=== PATIENT | male | born 1945 | race Hispanic/Latino ===

== ENCOUNTER 2016-06-03 08:37 | Emergency (ER) | payer MEDICARE ==
[2016-06-03 09:11] VITALS: BMI 29.7
[2016-06-03 09:14] VITALS: BP 110/66; PULSE 70; RESP 18; TEMP 97.7; O2SAT 98
--- NOTE | 2016-06-03 09:14 | C.PDOC ---
History Of Present Illness 70-year-old male, PMHx includes Triple Bypass, LA (on Aspirin 81mg QD), COPD and Hypertension, presents to the emergency department with complaints of inability to urinate. Patient states he had a procedure done at Dr Macias office two days ago, after which he had a few episodes of hematuria which resolved. States he has been unable to urinate since 01:30 this morning, resulting in him coming to the ED for evaluation. Denies any other associated symptoms. Urologist Sydnee Sanchez MD. Time Seen by Provider: 06/03/16 09:03 Chief Complaint (Nursing): Male Genitourinary Past Medical History Reviewed: Historical Data, Nursing Documentation, Vital Signs Vital Signs: Last Vital Signs Temp 97.7 F 06/03/16 09:11 Pulse 70 06/03/16 09:11 Resp 18 06/03/16 09:11 BP 110/66 06/03/16 09:11 Pulse Ox 98 06/03/16 09:11 - Medical History PMH: Anxiety, Asthma, Bronchitis, CAD, CHF, Colonic Polyps, COPD, Depression, Emphysema, HTN, Hyperlipidemia, Hypothyroidism Denies: Chronic Kidney Disease Surgical History: Appendectomy, CABG (Triple bypass Nov 1996), Coronary Stent, Endoscopy - [facility] Procedures CORONAR ARTERIOGR-2 CATH (05/23/13) ESOPHAGOGASTRODUODENOSCOPY [EGD] W/CLOSED BIOPSY (03/21/14) LEFT HEART CARDIAC CATH (05/23/13) LT HEART ANGIOCARDIOGRAM (05/23/13) MEASURE OF CARDIAC SAMPL & PRESSURE, L HEART, PERC APPROACH (11/28/15) PLAIN RADIOGRAPHY OF LEFT HEART USING OTHER CONTRAST (11/28/15) PLAIN RADIOGRAPHY OF MULT COR A GRAFT USING OTH CONTRAST (11/28/15) PLAIN RADIOGRAPHY OF MULT COR ART USING OTH CONTRAST (11/28/15) Family History: States: Unknown Family Hx - Social History Hx Tobacco Use: No Hx Alcohol Use: No (25 yrs ago) Hx Substance Use: No - Immunization History Hx Tetanus Toxoid Vaccination: No Hx Influenza Vaccination: Yes Hx Pneumococcal Vaccination: Yes Review Of Systems Except As Marked, All Systems Reviewed And Found Negative. Constitutional: Negative for: Fever, Chills Respiratory: Negative for: Cough, Shortness of Breath Gastrointestinal: Positive for: Abdominal Pain. Negative for: Nausea, Vomiting Genitourinary: Positive for: Hematuria (resolved.), Other (inability to urinate) . Negative for: Dysuria, Rash Skin: Negative for: Rash Neurological: Negative for: Weakness, Numbness Physical Exam - Physical Exam Appears: Non-toxic, No Acute Distress Skin: Warm, Dry, No Rash Head: Atraumatic, Normacephalic Eye(s): bilateral: Normal Inspection, PERRL, EOMI Nose: Normal Oral Mucosa: Moist Lips: Normal Appearing Neck: Normal ROM Cardiovascular: Rhythm Regular Respiratory: Normal Breath Sounds, No Accessory Muscle Use Gastrointestinal/Abdominal: Soft, Tenderness (MILD, SUPRAPBIC), No Guarding, No Rebound Male Genital: Normal Inspection (no bleeding.) Extremity: Normal ROM Neurological/Psych: Oriented x3, Normal Speech Medical Decision Making Medical Decision Making: the pt had 250ml output in the ED and afterwards felt much better. PVRV about 500ml on US. Dr Sanchez came and evaluated the pt in the ED. he rec no voss at this time. pt to follow up with him by phone this afternoon. Disposition - Disposition Referrals: Sydnee Sanchez MD [Staff Provider] - Disposition: HOME/ ROUTINE Disposition Time: 09:46 Condition: IMPROVED Additional Instructions: Please follow up with Dr Sanchez. Return to the ER fot any worsening symptoms or for any other concerns. Instructions: Urinary Retention in Men (ED) Forms: General Discharge Instructions - Clinical Impression Clinical Impression: Urinary retention - Scribe Statement The provider has reviewed the documentation as recorded by the Jennie Robles All medical record entries made by the Barbiibonur were at my direction and personally dictated by me. I have reviewed the chart and agree that the record accurately reflects my personal performance of the history, physical exam, medical decision making, and the department course for this patient. I have also personally directed, reviewed, and agree with the discharge instructions and disposition.
[2016-06-03 10:14] LABS: RBC URINE 65 /hpf (0-3); URINE BILIRUBIN NEGATIVE (NEGATIVE); URINE BLOOD 2+ (NEGATIVE); URINE COLOR Straw (YELLOW); URINE GLUCOSE (UA) NORMAL (Normal); URINE HYALINE CAST 0-2 /lpf (0-2); URINE KETONE NEGATIVE (NEGATIVE); URINE LEUKOCYTE ESTERASE NEG Leu/uL (Negative); URINE PROTEIN NEGATIVE (NEGATIVE); URINE UROBILINOGEN NORMAL mg/dL (0.2-1.0); WBC URINE 2 /hpf (0-5)
--- NOTE | 2016-06-10 08:26 | CON ---
DATE: 06/03/2016 REASON FOR CONSULTATION: Urinary retention. The patient is in otherwise fair health. The patient presents with difficulty voiding. He reports t hat he has been unable to urinate. He had difficulty voiding over the past night. The patient repor ts that he has been unable to urinate this morning. He, therefore, presented to the Emergency Room. There has been no fever, no hematuria. The patient has had mild dysuria. The patient has history of BPH. He underwent cystoscopy earlier this week. There has been no recent fever or rigors. No nausea or vomiting. No flank pain. The patient presented to the Emergency Room. In the Emergency Room, he voided 250 mL. He reports th at he voided with a better flow. For further details, see attached reports. PHYSICAL EXAMINATION: GENERAL: The patient is a well-developed, well-nourished elderly male. The patient is awake and charles rt. ABDOMEN: Soft, nontender, nondistended. GENITALIA: Without inflammation. A bladder scan was performed. The postvoid residual was approximately 400 mL. IMPRESSION: Incomplete bladder emptying. Benign prostatic hypertrophy. History of greater difficul ty voiding earlier today, now improved. I reviewed the findings with the patient. I was prepared to insert a Goins catheter. However, in vi ew of his improvement, we decided to monitor the patient without a Goins catheter. RECOMMENDATIONS AND PLAN: Scheduled voiding. I will increase patient's tamsulosin to 0.4 mg twice a day. Further therapy to follow according to patient's clinical course. The patient was informed regarding the plan and the possible need for catheterization. Thank you for recommending the patient for urology consultation. Sydnee Sanchez MD cc: [id number] TT: 06/10/2016 08:25:34 Confirmation # [id number] Dictation # [id number] [email or web address]
== END 2016-06-03 10:15 | disposition home or self-care (01) ==
LOC: C.ER 08:37
DX: N40.1 Benign prostatic hyperplasia with lower urinary tract symptoms (principal); R33.8 Other retention of urine

== ENCOUNTER 2016-07-25 05:50 | Day surgery (SDC) | payer MEDICARE ==
[2016-07-25 07:02] VITALS: BMI 26.6
[2016-07-25] MEDS ORDERED: Lactated Ringer's 500 ML IV SCH (07:45)
[2016-07-25] MEDS ORDERED: Propofol 10 mg/ml Inj (20 ML) ONE (08:08)
--- NOTE | 2016-07-25 08:10 | CP.SDSHP ---
Same Day Surgery H & P - History Proposed Procedure: High risk screening cololonscopy Pre-Op Diagnosis: Personal history of colon polyps - Previous Medical/Surgical History Cardiac: ASHD/CAD, Previous VA, Hx of CHF Pulmonary: Asthma Previous Surgical History: Appendectomy - Allergies Allergies: Allergies No Known Allergies Allergy (Verified 08/08/14 09:50) - Current Medications Current Medications: See reconciliation sheet - Physical Exam General Appearance: WD WN male in NAD Vital Signs: Vital Signs 07/25/16 07:02 Temperature 97.3 F L Pulse Rate 80 Respiratory 20 Rate Blood Pressure 99/43 L O2 Sat by Pulse 97 Oximetry Mental Status: Alert & Oriented x3 Neuro: WNL Heart: WNL Lungs: WNL GI: WNL - {Optional Preform as Required} Abdomen: WNL - Impression Impression: Personal history of colon polyps Pt. Evaluated Today:Candidate for Anesthesia & Procedure: Yes - Date & Time Date: 07/25/16 Time: 08:10 Short Stay Discharge - Short Stay Discharge Admitting Diagnosis/Reason for Visit: P/H COLON POLYPS Disposition: HOME/ ROUTINE
[2016-07-25] MEDS ORDERED: Lidocaine Hydrochloride 5 ML INJ ONE (08:48)
[2016-07-25 12:00] VITALS: O2SAT 100
[2016-07-25 12:01] VITALS: BP 92/52; PULSE 75; RESP 16; TEMP 98.4
== END 2016-07-25 11:00 | disposition home or self-care (01) ==
LOC: C.ENDO 05:50
PROVIDERS: ATTEND Internal Medicine Gastroenterology
DX: Z12.11 Encounter for screening for malignant neoplasm of colon (principal); Z86.010 Personal history of colon polyps; D12.3 Benign neoplasm of transverse colon; D12.2 Benign neoplasm of ascending colon
CPT/HCPCS: 45385; 88305; J2704; J7120

== ENCOUNTER 2017-08-22 12:05 | Inpatient (IN) | payer MEDICARE ==
[2017-08-22 12:05] VITALS: BMI 26.6
--- NOTE | 2017-08-22 12:55 | C.PDOC ---
History Of Present Illness 72yo male with history of COPD, hypertension, CABG, presents to ED from his podiatrists' office after he developed some chest pressure. Patient states he took 7 81mg Aspirin a someone told him he could for pain relief. He reports feeling shortness of breath which prompted him to call 911. En route to ER, patient was given Nitro by EMS and states his chest pain and shortness of breath has resolved. He denies any fever, chills, weakness, diaphoresis, and offers no other medical complaints. Time Seen by Provider: 08/22/17 12:28 Chief Complaint (Nursing): Chest Pain History Per: Patient History/Exam Limitations: no limitations Onset/Duration Of Symptoms: Hrs Current Symptoms Are (Timing): Still Present Associated Symptoms: denies: Nausea, Dyspnea, Diaphoresis, Syncope Additional History Per: Patient Past Medical History Reviewed: Historical Data, Nursing Documentation, Vital Signs Vital Signs: Last Vital Signs Temp 98.2 F 08/22/17 12:24 Pulse 74 08/22/17 12:24 Resp 10 L 08/22/17 12:24 BP 89/51 L 08/22/17 12:24 Pulse Ox 96 08/22/17 13:17 - Medical History PMH: Anxiety, Asthma, Bronchitis, CAD, CHF, Colonic Polyps, COPD, Depression, Emphysema, HTN, Hyperlipidemia, Hypothyroidism Denies: Chronic Kidney Disease Surgical History: Appendectomy, CABG (Triple bypass Nov 1996), Coronary Stent, Endoscopy - [facility] Procedures CORONAR ARTERIOGR-2 CATH (05/23/13) ESOPHAGOGASTRODUODENOSCOPY [EGD] W/CLOSED BIOPSY (03/21/14) LEFT HEART CARDIAC CATH (05/23/13) LT HEART ANGIOCARDIOGRAM (05/23/13) MEASURE OF CARDIAC SAMPL & PRESSURE, L HEART, PERC APPROACH (11/28/15) PLAIN RADIOGRAPHY OF LEFT HEART USING OTHER CONTRAST (11/28/15) PLAIN RADIOGRAPHY OF MULT COR A GRAFT USING OTH CONTRAST (11/28/15) PLAIN RADIOGRAPHY OF MULT COR ART USING OTH CONTRAST (11/28/15) Family History: States: Unknown Family Hx - Social History Hx Tobacco Use: No Hx Alcohol Use: No (25 yrs ago) Hx Substance Use: No - Immunization History Hx Tetanus Toxoid Vaccination: No Hx Influenza Vaccination: Yes Hx Pneumococcal Vaccination: Yes Review Of Systems Except As Marked, All Systems Reviewed And Found Negative. Constitutional: Negative for: Fever, Chills, Sweats Cardiovascular: Positive for: Chest Pain (now resolved) Respiratory: Positive for: Shortness of Breath (now resolved) Neurological: Negative for: Weakness, Dizziness Physical Exam - Physical Exam Appears: Non-toxic, No Acute Distress Skin: Normal Color, Warm, Dry Head: Atraumatic, Normacephalic Eye(s): bilateral: Normal Inspection Oral Mucosa: Moist Neck: Normal ROM, Supple Chest: Symmetrical, No Tenderness Cardiovascular: Rhythm Regular, No Murmur Respiratory: Normal Breath Sounds, No Rales, No Rhonchi, No Wheezing Gastrointestinal/Abdominal: Soft, No Tenderness Back: Normal Inspection Extremity: Normal ROM, No Pedal Edema, No Deformity Neurological/Psych: Oriented x3 ED Course And Treatment - Laboratory Results Result Diagrams: 08/22/17 13:06 08/22/17 13:06 ECG: Interpreted By Me, Viewed By Me ECG Rhythm: Sinus Rhythm, L BBB Interpretation Of ECG: Normal axis, widened QRS V5 V6 Rate From EC O2 Sat by Pulse Oximetry: 96 (RA) Pulse Ox Interpretation: Normal Medical Decision Making Medical Decision Making: Impression: Chest pressure, shortness of breath Plan: -- EKG -- Labs -- CXR Progress: 1610 CXR FINDINGS: LUNGS: Bibasilar atelectasis/ scarring. No focal consolidation. PLEURA: No pneumothorax or pleural fluid seen. CARDIOVASCULAR: Prior sternotomy with sternal wires and surgical clips redemonstrated. Atherosclerotic aortic calcifications. Cardiomediastinal silhouette stably prominent. OSSEOUS STRUCTURES: Unchanged. VISUALIZED UPPER ABDOMEN: Normal. OTHER FINDINGS: None. IMPRESSION: Bibasilar atelectasis/scarring. No focal consolidation or pleural effusion. 1614 Labs reviewed and shows no acute findings. Patient to be admitted under Dr. Seu to telemetry due to chest pain. Disposition - Disposition - Scribe Statement The provider has reviewed the documentation as recorded by the Scribe (Josiane Morton) Provider Attestation: All medical record entries made by the Scribe were at my direction and personally dictated by me. I have reviewed the chart and agree that the record accurately reflects my personal performance of the history, physical exam, medical decision making, and the department course for this patient. I have also personally directed, reviewed, and agree with the discharge instructions and disposition.
[2017-08-22 13:12] LABS: BASO % 0.5 % (0.0-2.0); EOS # 0.1 K/uL (0.0-0.7); EOS % 1.8 % (0.0-4.0); HEMOGLOBIN 12.7 g/dL (12.0-18.0); LYMPH # 1.6 K/uL (1.0-4.3); LYMPH % 22.8 % (20.0-40.0); MEAN CORPUSCULAR HGB CONC 35.7 g/dL (33.0-37.0); MEAN PLATELET VOLUME 8.5 fL (7.2-11.7); MONO # 0.6 K/uL (0.0-0.8); NEUT # 4.7 K/uL (1.8-7.0); NEUT % 65.9 % (50.0-75.0); RBC 3.73 Mil/uL (4.40-5.90); RED CELL DISTRIBUTION WIDTH 13.3 % (11.5-14.5); WHITE BLOOD COUNT 7.1 K/uL (4.8-10.8)
[2017-08-22 13:17] LABS: MEAN CELL VOLUME 95.2 fL (80.0-94.0)
[2017-08-22 13:23] LABS: INR 1.1; PROTHROMBIN TIME 11.5 SECONDS (9.7-12.2)
[2017-08-22 13:25] LABS: ALB/GLOB RATIO 1.3 (1.0-2.1); ALBUMIN 3.4 g/dL (3.5-5.0); ALT/SGPT 22 U/L (21-72); AST/SGOT 19 U/L (17-59); BLOOD UREA NITROGEN 17 mg/dL (9-20); CALCIUM 8.1 mg/dl (8.6-10.4); GFR AFRICAN-AMERICAN > 60; GFR NON-AFRICAN AMERICAN > 60
--- NOTE | 2017-08-22 14:11 | RAD ---
PROCEDURE: CHEST RADIOGRAPH, 1 VIEW HISTORY: chest pain COMPARISON: Chest radiograph dated 11/27/2015. FINDINGS: LUNGS: Bibasilar atelectasis/ scarring. No focal consolidation. PLEURA: No pneumothorax or pleural fluid seen. CARDIOVASCULAR: Prior sternotomy with sternal wires and surgical clips redemonstrated. Atherosclerotic aortic calcifications. Cardiomediastinal silhouette stably prominent. OSSEOUS STRUCTURES: Unchanged. VISUALIZED UPPER ABDOMEN: Normal. OTHER FINDINGS: None. IMPRESSION: Bibasilar atelectasis/scarring. No focal consolidation or pleural effusion.
[2017-08-22] MEDS ORDERED: Home Med 1 UNIT (Acetaminophen/Oxycodone Hydr [Percocet 10/325 Mg Tab] 1 TAB) PO PRN (16:19)
--- NOTE | 2017-08-22 16:38 | CP.PCM.HP ---
History of Present Illness - History of Present Illness History of Present Illness: CC: Chest pain since 8am 08/22 (4pm seeing) PMD: Dr. Nuñez DNR/DNI This patient is a 72yo M w/ a PMhx of CABG (triple bypass) in 1995, CAD, HLD, HTN, Depression/anxiety, former smoker (120pack years, stopped in 1996) who is coming into the hospital for chest pain that started at 8am at his podiatry office. He states that it is retrosternal, is not going away, and took 8 baby aspirin before coming to the hospital. He denies weakness, shortness of breath, N/V/D, dysuria/freq/urg or lower extremity pain, but states he just feels "off" . PMhx: Triple Bypass CABG, CAD, HLD, HTN, Depression/Anxiety BPH Allergies: None Meds: Tylenol/codeine PRN for pain, Xanax PRN for anxiety, Aspirin 81mg daily, Lipitor 10mg daily, Lasix 20mg daily, Levothyroxine 75mcg daily, Lisinopril 2.5mg daily, toprol 12.5mg daily, Umeclidiunium bromide 1 puff BID Surgeries: CABG, right rotator cuff tear FamHx: Dad, brother both in 40's/50's from [place], mothers side lived into old age and of "natural" causes Social: walks with cane, independent in all ADL and IADL and lives alone with no administrator of home health, former smoker 120 pack years, stopped 1996 Present on Admission - Present on Admission Any Indicators Present on Admission: No History of DVT/PE: No History of Uncontrolled Diabetes: No Urinary Catheter: No Decubitus Ulcer Present: No Past Patient History - Infectious Disease Hx of Infectious Diseases: None - Past Medical History & Family History Past Medical History?: Yes - Past Social History Smoking Status: Former Smoker - CARDIAC Hx Congestive Heart Failure: Yes Hx Hypertension: Yes - PULMONARY Hx Asthma: Yes Hx Bronchitis: Yes Hx Chronic Obstructive Pulmonary Disease (COPD): Yes Hx Emphysema: Yes - NEUROLOGICAL Hx Neurological Disorder: No - HEENT Hx HEENT Problems: No Other/Comment: wears glasses to see and read - RENAL Hx Chronic Kidney Disease: No - ENDOCRINE/METABOLIC Hx Hypothyroidism: Yes - HEMATOLOGICAL/ONCOLOGICAL Hx Blood Disorders: No - INTEGUMENTARY Hx Dermatological Problems: No - MUSCULOSKELETAL/RHEUMATOLOGICAL Hx Musculoskeletal Disorders: Yes Hx Back Pain: Yes (herniated disc ,arthitis slipped disc,scoliosis) Hx Falls: No Hx Herniated Disk: Yes - GASTROINTESTINAL Hx Gastrointestinal Disorders: Yes Hx Gastroesophageal Reflux: Yes - GENITOURINARY/GYNECOLOGICAL Hx Genitourinary Disorders: Yes Hx Prostate Problems: Yes ("enlarged prostate") Other/Comment: prostate biopsy in June 2015 - PSYCHIATRIC Hx Anxiety: Yes Hx Depression: Yes Hx Substance Use: No - SURGICAL HISTORY Hx Appendectomy: Yes Hx Coronary Artery Bypass Graft: Yes (Triple bypass Nov 1996) Hx Coronary Stent: Yes - ANESTHESIA Hx Anesthesia: Yes Hx Anesthesia Reactions: No Hx Malignant Hyperthermia: No Meds Allergies/Adverse Reactions: Allergies Allergy/AdvReac Type Severity Reaction Status Date / Time No Known Allergies Allergy Verified 08/22/17 12:16 Physical Exam - Constitutional Appears: Well, Non-toxic - Head Exam Head Exam: ATRAUMATIC, NORMAL INSPECTION - Eye Exam Eye Exam: EOMI Pupil Exam: NORMAL ACCOMODATION - ENT Exam ENT Exam: Mucous Membranes Moist - Neck Exam Neck exam: Positive for: Full Rom. Negative for: Lymphadenopathy - Respiratory Exam Respiratory Exam: Clear to Auscultation Bilateral, Wheezes (mild wheezing), NORMAL BREATHING PATTERN. absent: Rales, Rhonchi - Cardiovascular Exam Cardiovascular Exam: REGULAR RHYTHM, +S1, +S2 - GI/Abdominal Exam GI & Abdominal Exam: Normal Bowel Sounds, Soft. absent: Organomegaly, Pulsatile Mass, Rebound, Rigid, Tenderness - Rectal Exam Rectal Exam: Deferred - Extremities Exam Extremities exam: Positive for: full ROM. Negative for: calf tenderness, pedal edema - Back Exam Back exam: NORMAL INSPECTION. absent: CVA tenderness (L), CVA tenderness (R) - Neurological Exam Neurological exam: Alert, CN II-XII Intact, Oriented x3 - Psychiatric Exam Psychiatric exam: Normal Affect - Skin Skin Exam: Normal Color, Warm Results - Vital Signs Recent Vital Signs: Last Vital Signs Temp 98.2 F 08/22/17 12:24 Pulse 74 08/22/17 12:24 Resp 10 L 08/22/17 12:24 BP 89/51 L 08/22/17 12:24 Pulse Ox 96 08/22/17 13:17 - Labs Result Diagrams: 08/22/17 13:06 08/22/17 13:06 Labs: Laboratory Results - last 24 hr 08/22/17 08/22/17 08/22/17 12:14 13:06 13:06 WBC 7.1 RBC 3.73 L Hgb 12.7 Hct 35.5 MCV 95.2 H D MCH 34.0 H MCHC 35.7 RDW 13.3 Plt Count 141 MPV 8.5 Neut % (Auto) 65.9 Lymph % (Auto) 22.8 [place] % (Auto) 9.0 Eos % (Auto) 1.8 Baso % (Auto) 0.5 Neut # (Auto) 4.7 Lymph # (Auto) 1.6 [place] # (Auto) 0.6 Eos # (Auto) 0.1 Baso # (Auto) 0.0 PT 11.5 INR 1.1 APTT 29 Sodium Potassium Chloride Carbon Dioxide Anion Gap BUN Creatinine Est GFR ( Amer) Est GFR (Non-Af Amer) POC Glucose (mg/dL) 147 H Random Glucose Calcium Total Bilirubin AST ALT Alkaline Phosphatase Troponin I Total Protein Albumin Globulin Albumin/Globulin Ratio 08/22/17 13:06 WBC RBC Hgb Hct MCV MCH MCHC RDW Plt Count MPV Neut % (Auto) Lymph % (Auto) [place] % (Auto) Eos % (Auto) Baso % (Auto) Neut # (Auto) Lymph # (Auto) [place] # (Auto) Eos # (Auto) Baso # (Auto) PT INR APTT Sodium 138 Potassium 3.6 Chloride 104 Carbon Dioxide 27 Anion Gap 11 BUN 17 Creatinine 0.8 Est GFR ( Amer) > 60 Est GFR (Non-Af Amer) > 60 POC Glucose (mg/dL) Random Glucose 120 H Calcium 8.1 L Total Bilirubin 0.5 AST 19 ALT 22 Alkaline Phosphatase 56 Troponin I < 0.0120 Total Protein 5.9 L Albumin 3.4 L Globulin 2.5 Albumin/Globulin Ratio 1.3 Assessment & Plan - Assessment and Plan (Free Text) Assessment: 72yo M admitted for chest pain Chest pain r/o ACS -received 325 aspirin PO already -telemetry -troponins q6h; initial negative with serial EKG -f/u BNP -EKG NSR with no ST segment elevations -f/u hemoglobin a1c, lipid panel, TSH/T4 -Cardiology; Dr. Robertson; thank you for your help HLD -c/w atorvastatin 10mg daily -f/u lipid panel HTN -c/w lisinopril 2.5mg -c/w toprol XL 12.5mg BID Hypothyroidism -f/u TSH/Free T4 -c/w levothyroxine 75mcg COPD -c/w home meds (we do not have on formulary) -PRN breathing treatments for wheezing/SOB BPH -home med changed to tamsulosin 0.4mg daily Proph GI prophylaxis not indicated SCDs Case discussed and seen with attending physician Decision To Admit - Pt Status Changed To: Hospital Disposition Of: Observation - . Bed Request Type: Telemetry Admitting Physician: George Moss
[2017-08-22] MEDS ORDERED: Albuterol-Ipratrop 3 mg / 0.5 (3 ml) UD INH PRN (16:42)
[2017-08-22] MEDS ORDERED: oxyCODONE 5 mg Immediate Release Tab PO PRN (16:45)
[2017-08-22] MEDS ORDERED: Nitroglycerin 2% Ointment Foilpak UD TOP STA (17:04)
[2017-08-22] MEDS ORDERED: Nitroglycerin 2% Ointment Foilpak UD TOP ONE (17:10)
--- NOTE | 2017-08-22 18:37 | CP.PCM.CON ---
History of Present Illness - History of Present Illness History of Present Illness: CC: Chest Pain This patient is a 72yo M w/ a PMhx of CABG (triple bypass) in 1995, CAD, HLD, HTN, Depression/anxiety, former smoker (120pack years, stopped in 1996) who is coming into the hospital for chest pain that started at 8am at his podiatry office. He states that it is retrosternal, is not going away, and took 8 baby aspirin before coming to the hospital. He denies weakness, shortness of breath, N/V/D, dysuria/freq/urg or lower extremity pain, but states he just feels "off" . PMhx: Triple Bypass CABG, CAD, HLD, HTN, Depression/Anxiety BPH Allergies: None Meds: Tylenol/codeine PRN for pain, Xanax PRN for anxiety, Aspirin 81mg daily, Lipitor 10mg daily, Lasix 20mg daily, Levothyroxine 75mcg daily, Lisinopril 2.5mg daily, toprol 12.5mg daily, Umeclidiunium bromide 1 puff BID Surgeries: CABG, right rotator cuff tear FamHx: Dad, brother both in 40's/50's from [place], mothers side lived into old age and of "natural" causes Social: walks with cane, independent in all ADL and IADL and lives alone with no psychometrician, former smoker 120 pack years, stopped 1996 Physical Exam - Constitutional Appears: Well, Non-toxic - Head Exam Head Exam: ATRAUMATIC, NORMAL INSPECTION - Eye Exam Eye Exam: EOMI Pupil Exam: NORMAL ACCOMODATION - ENT Exam ENT Exam: Mucous Membranes Moist - Neck Exam Neck exam: Positive for: Full Rom. Negative for: Lymphadenopathy - Respiratory Exam Respiratory Exam: Clear to Auscultation Bilateral, Wheezes (mild wheezing), NORMAL BREATHING PATTERN. absent: Rales, Rhonchi - Cardiovascular Exam Cardiovascular Exam: REGULAR RHYTHM, +S1, +S2 - GI/Abdominal Exam GI & Abdominal Exam: Normal Bowel Sounds, Soft. absent: Organomegaly, Pulsatile Mass, Rebound, Rigid, Tenderness - Rectal Exam Rectal Exam: Deferred - Extremities Exam Extremities exam: Positive for: full ROM. Negative for: calf tenderness, pedal edema - Back Exam Back exam: NORMAL INSPECTION. absent: CVA tenderness (L), CVA tenderness (R) - Neurological Exam Neurological exam: Alert, CN II-XII Intact, Oriented x3 - Psychiatric Exam Psychiatric exam: Normal Affect - Skin Skin Exam: Normal Color, Warm Past Patient History - Infectious Disease Hx of Infectious Diseases: None - Past Medical History & Family History Past Medical History?: Yes - Past Social History Smoking Status: Former Smoker - CARDIAC Hx Cardiac Disorders: Yes Hx Congestive Heart Failure: Yes Hx Hypertension: Yes - PULMONARY Hx Respiratory Disorders: Yes Hx Asthma: Yes Hx Bronchitis: Yes Hx Chronic Obstructive Pulmonary Disease (COPD): Yes Hx Emphysema: Yes - NEUROLOGICAL Hx Neurological Disorder: No - HEENT Hx HEENT Problems: No Other/Comment: wears glasses to see and read - RENAL Hx Chronic Kidney Disease: No - ENDOCRINE/METABOLIC Hx Endocrine Disorders: Yes Hx Hypothyroidism: Yes - HEMATOLOGICAL/ONCOLOGICAL Hx Blood Disorders: No - INTEGUMENTARY Hx Dermatological Problems: No - MUSCULOSKELETAL/RHEUMATOLOGICAL Hx Musculoskeletal Disorders: Yes Hx Back Pain: Yes (herniated disc ,arthitis slipped disc,scoliosis) Hx Falls: No Hx Herniated Disk: Yes - GASTROINTESTINAL Hx Gastrointestinal Disorders: Yes Hx Gastroesophageal Reflux: Yes - GENITOURINARY/GYNECOLOGICAL Hx Genitourinary Disorders: Yes Hx Prostate Problems: Yes ("enlarged prostate") Other/Comment: prostate biopsy in June 2015 - PSYCHIATRIC Hx Anxiety: Yes Hx Depression: Yes Hx Substance Use: No - SURGICAL HISTORY Hx Surgeries: Yes Hx Appendectomy: Yes Hx Coronary Artery Bypass Graft: Yes (Triple bypass Nov 1996) Hx Coronary Stent: Yes - ANESTHESIA Hx Anesthesia: Yes Hx Anesthesia Reactions: No Hx Malignant Hyperthermia: No Meds Allergies/Adverse Reactions: Allergies Allergy/AdvReac Type Severity Reaction Status Date / Time No Known Allergies Allergy Verified 08/22/17 12:16 - Medications Medications: Current Medications Acetaminophen (Tylenol 325mg Tab) 650 mg PO Q6 PRN PRN Reason: Fever >100.4 F Albuterol/Ipratropium (Duoneb 3 Mg/0.5 Mg (3 Ml) Ud) 3 ml INH RQ6 PRN PRN Reason: SOb Alprazolam (Xanax) 0.5 mg PO TID [facility] Last Admin: 08/22/17 17:16 Dose: 0.5 mg Ascorbic Acid (Vitamin C 500 Mg Tab) 1,000 mg PO DAILY [facility] Aspirin (Aspirin Chewable) 1 mg PO DAILY [facility] Enoxaparin Sodium (Lovenox) 40 mg SC DAILY [facility] Folic Acid (Folic Acid) 1 mg PO DAILY [facility] Furosemide (Lasix) 20 mg PO MWF [facility] Levothyroxine Sodium (Synthroid) 75 mcg PO DAILY@0630 [facility] Lisinopril (Zestril) 2.5 mg PO DAILY [facility] Metoprolol Succinate (Toprol Xl) 12.5 mg PO DAILY [facility] Ondansetron HCl (Zofran Inj) 4 mg IVP Q6 PRN PRN Reason: Nausea/Vomiting Oxycodone HCl (Oxycodone Immediate Release Tab) 5 mg PO Q6 PRN PRN Reason: Pain, severe (8-10) Rosuvastatin Calcium (Crestor) 5 mg PO HS [facility] Tamsulosin HCl (Flomax) 0.4 mg PO DAILY [facility] Tiotropium [place] (Spiriva) 18 mcg INH RQ24 PRINCESS Tiotropium [place] (Spiriva Inhalation Handihaler Device) 1 inhaler INH ONCE ONE Stop: 08/23/17 08:01 Results - Vital Signs Recent Vital Signs: Last Vital Signs Temp 97.7 F 08/22/17 18:09 Pulse 75 08/22/17 18:09 Resp 18 08/22/17 18:09 BP 103/61 08/22/17 18:09 Pulse Ox 95 08/22/17 18:09 - Labs Result Diagrams: 08/22/17 13:06 08/22/17 13:06 Labs: Laboratory Results - last 24 hr 08/22/17 08/22/17 08/22/17 12:14 13:06 13:06 WBC 7.1 RBC 3.73 L Hgb 12.7 Hct 35.5 MCV 95.2 H D MCH 34.0 H MCHC 35.7 RDW 13.3 Plt Count 141 MPV 8.5 Neut % (Auto) 65.9 Lymph % (Auto) 22.8 [place] % (Auto) 9.0 Eos % (Auto) 1.8 Baso % (Auto) 0.5 Neut # (Auto) 4.7 Lymph # (Auto) 1.6 [place] # (Auto) 0.6 Eos # (Auto) 0.1 Baso # (Auto) 0.0 PT 11.5 INR 1.1 APTT 29 Sodium Potassium Chloride Carbon Dioxide Anion Gap BUN Creatinine Est GFR ( Amer) Est GFR (Non-Af Amer) POC Glucose (mg/dL) 147 H Random Glucose Calcium Total Bilirubin AST ALT Alkaline Phosphatase Troponin I NT-Pro-B Natriuret Pep Total Protein Albumin Globulin Albumin/Globulin Ratio 08/22/17 08/22/17 13:06 16:44 WBC RBC Hgb Hct MCV MCH MCHC RDW Plt Count MPV Neut % (Auto) Lymph % (Auto) [place] % (Auto) Eos % (Auto) Baso % (Auto) Neut # (Auto) Lymph # (Auto) [place] # (Auto) Eos # (Auto) Baso # (Auto) PT INR APTT Sodium 138 Potassium 3.6 Chloride 104 Carbon Dioxide 27 Anion Gap 11 BUN 17 Creatinine 0.8 Est GFR ( Amer) > 60 Est GFR (Non-Af Amer) > 60 POC Glucose (mg/dL) Random Glucose 120 H Calcium 8.1 L Total Bilirubin 0.5 AST 19 ALT 22 Alkaline Phosphatase 56 Troponin I < 0.0120 NT-Pro-B Natriuret Pep 226 Total Protein 5.9 L Albumin 3.4 L Globulin 2.5 Albumin/Globulin Ratio 1.3 Assessment & Plan - Assessment and Plan (Free Text) Assessment: Chest pain r/o ACS -ASA 81 po daily -telemetry -troponins q6h; initial negative with serial EKG -f/u BNP -EKG NSR with no ST segment elevations -f/u hemoglobin a1c, lipid panel, TSH/T4 HLD -c/w atorvastatin 10mg daily -f/u lipid panel HTN -c/w lisinopril 2.5mg -c/w toprol XL 12.5mg BID Hypothyroidism -f/u TSH/Free T4 -c/w levothyroxine 75mcg COPD -c/w home meds (we do not have on formulary) -PRN breathing treatments for wheezing/SOB BPH -home med changed to tamsulosin 0.4mg daily Proph GI prophylaxis not indicated SCDs
[2017-08-22 20:39] LABS: CK-MB 1.78 ng/mL (0.0-3.38)
[2017-08-23 00:58] VITALS: RESP 20; O2SAT 94
[2017-08-23 02:26] LABS: BASO # 0.1 K/uL (0.0-0.2); BASO % 0.8 % (0.0-2.0); EOS # 0.2 K/uL (0.0-0.7); EOS % 2.4 % (0.0-4.0); HEMOGLOBIN 12.5 g/dL (12.0-18.0); LYMPH # 2.1 K/uL (1.0-4.3); LYMPH % 27.8 % (20.0-40.0); MEAN CELL VOLUME 94.7 fL (80.0-94.0); MEAN CORPUSCULAR HEMOGLOBIN 33.6 pg (27.0-31.0); MEAN CORPUSCULAR HGB CONC 35.4 g/dL (33.0-37.0); MONO # 0.8 K/uL (0.0-0.8); MONO % 10.1 % (0.0-10.0); NEUT # 4.5 K/uL (1.8-7.0); NEUT % 58.9 % (50.0-75.0); RBC 3.74 Mil/uL (4.40-5.90); RED CELL DISTRIBUTION WIDTH 13.1 % (11.5-14.5); WHITE BLOOD COUNT 7.6 K/uL (4.8-10.8)
[2017-08-23 02:41] LABS: ALB/GLOB RATIO 1.3 (1.0-2.1); ALBUMIN 3.3 g/dL (3.5-5.0); ALT/SGPT 25 U/L (21-72); AST/SGOT 16 U/L (17-59); BLOOD UREA NITROGEN 15 mg/dL (9-20); CALCIUM 8.5 mg/dl (8.6-10.4); GFR AFRICAN-AMERICAN > 60; GFR NON-AFRICAN AMERICAN > 60; HDL CHOLESTEROL 35 mg/dL (30-70)
[2017-08-23 02:52] LABS: LDL CHOLESTEROL 58 mg/dL (0-129)
[2017-08-23 02:54] LABS: CK-MB 1.71 ng/mL (0.0-3.38)
[2017-08-23 03:10] LABS: HEPATITIS B SURFACE AG Negative (NEGATIVE)
[2017-08-23 03:16] LABS: HEPATITIS A IGM NEGATIVE (NEGATIVE); HEPATITIS B CORE AB NEGATIVE (NEGATIVE)
[2017-08-23 03:28] LABS: HEPATITIS C ANTIBODY NEGATIVE (NEGATIVE)
[2017-08-23] MEDS ORDERED: Levothyroxine 75 MCG TAB PO SCH (06:30)
[2017-08-23] MEDS ORDERED: Tiotropium 18 mcg Cap For Inhalation INH SCH (08:00)
[2017-08-23 08:13] VITALS: BP 99/62; TEMP 98.2
[2017-08-23] MEDS ORDERED: Enoxaparin 40 mg Syringe SC SCH (10:00)
[2017-08-23] MEDS ORDERED: Metoprolol Succinate 12.5 mg XL Tab PO SCH (10:00)
--- NOTE | 2017-08-23 13:04 | CP.PCM.DIS ---
Provider - Provider Date of Admission: 08/22/17 16:11 Attending physician: Antonio Sue DO Consults: Cards: Marcelo Time Spent in preparation of Discharge (in minutes): 45 Hospital Course - Lab Results Lab Results: Most Recent Lab Values WBC 7.6 K/uL (4.8-10.8) 08/23/17 02:23 RBC 3.74 Mil/uL (4.40-5.90) L 08/23/17 02:23 Hgb 12.5 g/dL (12.0-18.0) 08/23/17 02:23 Hct 35.4 % (35.0-51.0) 08/23/17 02:23 MCV 94.7 fL (80.0-94.0) H 08/23/17 02:23 MCH 33.6 pg (27.0-31.0) H 08/23/17 02:23 MCHC 35.4 g/dL (33.0-37.0) 08/23/17 02:23 RDW 13.1 % (11.5-14.5) 08/23/17 02:23 Plt Count 128 K/uL (130-400) L 08/23/17 02:23 MPV 8.0 fL (7.2-11.7) 08/23/17 02:23 Neut % (Auto) 58.9 % (50.0-75.0) 08/23/17 02:23 Lymph % (Auto) 27.8 % (20.0-40.0) 08/23/17 02:23 [place] % (Auto) 10.1 % (0.0-10.0) H 08/23/17 02:23 Eos % (Auto) 2.4 % (0.0-4.0) 08/23/17 02:23 Baso % (Auto) 0.8 % (0.0-2.0) 08/23/17 02:23 Neut # (Auto) 4.5 K/uL (1.8-7.0) 08/23/17 02:23 Lymph # (Auto) 2.1 K/uL (1.0-4.3) 08/23/17 02:23 [place] # (Auto) 0.8 K/uL (0.0-0.8) 08/23/17 02:23 Eos # (Auto) 0.2 K/uL (0.0-0.7) 08/23/17 02:23 Baso # (Auto) 0.1 K/uL (0.0-0.2) 08/23/17 02:23 Differential Comment 08/23/17 02:23 PT 11.5 SECONDS (9.7-12.2) 08/22/17 13:06 INR 1.1 08/22/17 13:06 APTT 29 SECONDS (21-34) 08/22/17 13:06 Sodium 139 mmol/L (132-148) 08/23/17 02:23 Potassium 3.7 mmol/L (3.6-5.2) 08/23/17 02:23 Chloride 103 mmol/L (98-107) 08/23/17 02:23 Carbon Dioxide 29 mmol/L (22-30) 08/23/17 02:23 Anion Gap 11 (10-20) 08/23/17 02:23 BUN 15 mg/dL (9-20) 08/23/17 02:23 Creatinine 0.8 mg/dL (0.8-1.5) 08/23/17 02:23 Est GFR ( Amer) > 60 08/23/17 02:23 Est GFR (Non-Af Amer) > 60 08/23/17 02:23 POC Glucose (mg/dL) 147 mg/dL (65-110) H 08/22/17 12:14 Random Glucose 91 mg/dL (75-110) 08/23/17 02:23 Hemoglobin A1c 5.5 % (4.2-6.5) 08/23/17 02:23 Calcium 8.5 mg/dl (8.6-10.4) L 08/23/17 02:23 Total Bilirubin 0.7 mg/dL (0.2-1.3) 08/23/17 02:23 AST 16 U/L (17-59) L 08/23/17 02:23 ALT 25 U/L (21-72) 08/23/17 02:23 Alkaline Phosphatase 53 U/L (38-126) 08/23/17 02:23 Total Creatine Kinase 45 U/L (55-170) L 08/23/17 02:23 CK-MB (Mass) 1.71 ng/mL (0.0-3.38) 08/23/17 02:23 Troponin I < 0.0120 ng/mL (0.00-0.120) 08/23/17 02:23 NT-Pro-B Natriuret Pep 226 pg/mL (0-900) 08/22/17 16:44 Total Protein 5.7 g/dL (6.3-8.3) L 08/23/17 02:23 Albumin 3.3 g/dL (3.5-5.0) L 08/23/17 02:23 Globulin 2.4 gm/dL (2.2-3.9) 08/23/17 02:23 Albumin/Globulin Ratio 1.3 (1.0-2.1) 08/23/17 02:23 Triglycerides 82 mg/dL (0-149) 08/23/17 02:23 Cholesterol 106 mg/dL (0-199) 08/23/17 02:23 LDL Cholesterol Direct 58 mg/dL (0-129) 08/23/17 02:23 HDL Cholesterol 35 mg/dL (30-70) 08/23/17 02:23 Free T4 1.59 ng/dL (0.78-2.19) 08/23/17 02:23 TSH 3rd Generation 4.39 mIU/L (0.46-4.68) 08/23/17 02:23 Hepatitis A IgM Ab Negative (NEGATIVE) 08/23/17 02:23 Hep Bs Antigen Negative (NEGATIVE) 08/23/17 02:23 Hep B Core IgM Ab Negative (NEGATIVE) 08/23/17 02:23 Hepatitis C Antibody Negative (NEGATIVE) 08/23/17 02:23 - Hospital Course Hospital Course: On admission: This patient is a 72yo M w/ a PMhx of CABG (triple bypass) in 1995, CAD, HLD, HTN, Depression/anxiety, former smoker (120pack years, stopped in 1996) who is coming into the hospital for chest pain that started at 8am at his podiatry office. He states that it is retrosternal, is not going away, and took 8 baby aspirin before coming to the hospital. He denies weakness, shortness of breath, N/V/D, dysuria/freq/urg or lower extremity pain, but states he just feels "off" . Hospital course: Patient had 3 ekgs and 3 trops drawn q6H all of which were negative. Chest pain resolved. Seen by cardiology who cleared the patient. 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 Discharge Exam - Head Exam Head Exam: ATRAUMATIC, NORMAL INSPECTION - Eye Exam Eye Exam: EOMI, Normal appearance Pupil Exam: NORMAL ACCOMODATION - Respiratory Exam Respiratory Exam: Clear to PA & Lateral, NORMAL BREATHING PATTERN, UNREMARKABLE - Cardiovascular Exam Cardiovascular Exam: REGULAR RHYTHM, RRR, +S1, +S2. absent: Bradycardia, Tachycardia, Clicks, Diastolic murmur, Gallop, Irregular Rhythm, JVD, Rubs, +S4 , Systolic Murmur - GI/Abdominal Exam GI & Abdominal Exam: Normal Bowel Sounds, Soft, Unremarkable. absent: Distended , Tenderness - Back Exam Back exam: absent: CVA tenderness (L), CVA tenderness (R) - Neurological Exam Neurological exam: Alert, CN II-XII Intact, Oriented x3, Reflexes Normal - Psychiatric Exam Psychiatric exam: Normal Affect, Normal Mood - Skin Skin Exam: Dry, Intact, Normal Color, Warm Discharge Plan - Follow Up Plan Condition: GOOD Disposition: HOME/ ROUTINE Instructions: Heart Healthy Diet, Heart Failure, Adult (DC), Chest Pain (DC), Coronary Heart Disease (DC) Additional Instructions: Please follow up with Dr. Robertson in 7-10 days in his office. Please follow up with your primary doctor in 7-10 days. Please continue taking all your home medications. Please come back to the ED if symptoms return or worsen. Referrals: Karri Robertson MD [Staff Provider] -
--- NOTE | 2017-08-23 13:14 | CARD ---
APPROVED REPORT EKG Measurement Heart [id number] [place] 210P44 [id number] <Conclusion> Sinus rhythm with 1st degree AV block with occasional premature ventricular complexes Low voltage QRS Nonspecific T wave abnormality Prolonged QT Abnormal ECG
--- NOTE | 2017-08-23 13:54 | CARD ---
APPROVED REPORT EXAM: Two-dimensional and M-mode echocardiogram with Doppler and color Doppler. Other Information Quality : GoodRhythm : INDICATION Cardiac Disease: CAD Chest Pain COPD Surgery/Intervention CABG: Date: 1995 RISK FACTORS Hypertension Hyperlipidemia 2D DIMENSIONS IVSd0.9 (0.7-1.1cm)Aortic Root (2D)3.4 (2.0-3.7cm) LVDd4.8 (3.9-5.9cm)PWd1.1 (0.7-1.1cm) LVDs3.9 (2.5-4.0cm)FS (%) 17.9 % M-Mode DIMENSIONS RVDd0.80 (2.1-3.2cm)Left Atrium (MM)4.65 (2.5-4.0cm) IVSd0.90 (0.7-1.1cm)Aortic Root3.26 (2.2-3.7cm) LVDd6.42 (4.0-5.6cm)Aortic Cusp Exc.2.00 (1.5-2.0cm) PWd0.87 (0.7-1.1cm)FS (%) 30 % LVDs4.48 (2.0-3.8cm) Aortic Valve AI P 1/2 [id number] Mitral Valve MV E Cxqzqdap23.0cm/sMV A Ixfakcep576.0cm/sE/A ratio0.6 TDI E/Lateral E'0.0E/Medial E'0.0 Tricuspid Valve TR Peak Lcndrmdq432of/sTR Peak Gr.[id number] LEFT VENTRICLE The left ventricle is normal size. There is normal left ventricular wall thickness. The left ventricular function is normal. The left ventricular ejection fraction is mildly reduced About 45-50% paradoxical inferolateral wall motion was noted. Transmitral Doppler flow pattern is Grade I-abnormal relaxation pattern. No left ventricle thrombus noted on this study. There is no ventricular septal defect visualized. There is no left ventricular aneurysm. There is no mass noted in the left ventricle. RIGHT VENTRICLE The right ventricle is normal size. There is normal right ventricular wall thickness. The right ventricular systolic function is normal. ATRIA The left atrium size is normal. The right atrium size is normal. The interatrial septum is intact with no evidence for an atrial septal defect. AORTIC VALVE The aortic valve is normal in structure and function. No aortic regurgitation is present. There is no aortic valvular stenosis. There is no aortic valvular vegetation. MITRAL VALVE The mitral valve is normal in structure and function. There is no evidence of mitral valve prolapse. There is no mitral valve stenosis. There is no mitral valve regurgitation noted. TRICUSPID VALVE The tricuspid valve is normal in structure and function. There is no tricuspid valve regurgitation noted. There is no tricuspid valve prolapse or vegetation. There is no tricuspid valve stenosis. PULMONIC VALVE The pulmonary valve is normal in structure and function. There is no pulmonic valvular regurgitation. There is no pulmonic valvular stenosis. GREAT VESSELS The aortic root is normal in size. The ascending aorta is normal in size. The pulmonary artery is normal. The IVC is normal in size and collapses >50% with inspiration. PERICARDIAL EFFUSION The pericardium appears normal. There is no pleural effusion. <Conclusion> Mildly reduced left ventricular systolic function. Paradoxical inferolateral wall motion. Type I diastolic dysfunction. Normal Doppler.
[2017-08-23 14:37] VITALS: PULSE 74
--- NOTE | 2017-08-23 14:43 | CARD ---
APPROVED REPORT EKG Measurement Heart [id number] [place] [id number] <Conclusion> Normal sinus rhythm Low voltage QRS Inferior infarct, age undetermined Cannot rule out Anterior infarct, age undetermined Abnormal ECG
--- NOTE | 2017-08-23 15:30 | CARD ---
APPROVED REPORT EKG Measurement Heart [id number] [place] 224P14 [id number] <Conclusion> Sinus rhythm with 1st degree AV block Low voltage QRS Nonspecific T wave abnormality Abnormal ECG
--- NOTE | 2017-08-23 16:37 | CP.PCM.CON ---
History of Present Illness - History of Present Illness History of Present Illness: Patient is a 72 year old male with a past medical history of COPD, CABG (3 vessel bypass in 1995), CAD, HLD, HTN and depression, who presented yesterday (08/22) to the ED due to chest pain of several hours' duration. Patient states that pain felt "pressure-like" and was associated with shortness of breath. Patient states he currently feels comfortable and is no longer short of breath. Patient has been running low blood pressures (90's/50-60's) and saturating low at 94% on room air. Patient states chest pain has also improved. 1. Chest pain Patient discharged by primary team; will follow with outpatient cardiology. 2. COPD Patient discharged by primary team; Patient will follow up in office for outpatient management. Past Patient History - Infectious Disease Hx of Infectious Diseases: None - Past Medical History & Family History Past Medical History?: Yes - Past Social History Smoking Status: Former Smoker - CARDIAC Hx Cardiac Disorders: Yes Hx Congestive Heart Failure: Yes Hx Hypertension: Yes - PULMONARY Hx Respiratory Disorders: Yes Hx Asthma: Yes Hx Bronchitis: Yes Hx Chronic Obstructive Pulmonary Disease (COPD): Yes Hx Emphysema: Yes - NEUROLOGICAL Hx Neurological Disorder: No - HEENT Hx HEENT Problems: No Other/Comment: wears glasses to see and read - RENAL Hx Chronic Kidney Disease: No - ENDOCRINE/METABOLIC Hx Endocrine Disorders: Yes Hx Hypothyroidism: Yes - HEMATOLOGICAL/ONCOLOGICAL Hx Blood Disorders: No - INTEGUMENTARY Hx Dermatological Problems: No - MUSCULOSKELETAL/RHEUMATOLOGICAL Hx Musculoskeletal Disorders: Yes Hx Back Pain: Yes (herniated disc ,arthitis slipped disc,scoliosis) Hx Falls: No Hx Herniated Disk: Yes - GASTROINTESTINAL Hx Gastrointestinal Disorders: Yes Hx Gastroesophageal Reflux: Yes - GENITOURINARY/GYNECOLOGICAL Hx Genitourinary Disorders: Yes Hx Prostate Problems: Yes ("enlarged prostate") Other/Comment: prostate biopsy in June 2015 - PSYCHIATRIC Hx Anxiety: Yes Hx Depression: Yes Hx Substance Use: No - SURGICAL HISTORY Hx Surgeries: Yes Hx Appendectomy: Yes Hx Coronary Artery Bypass Graft: Yes (Triple bypass Nov 1996) Hx Coronary Stent: Yes - ANESTHESIA Hx Anesthesia: Yes Hx Anesthesia Reactions: No Hx Malignant Hyperthermia: No Meds Allergies/Adverse Reactions: Allergies Allergy/AdvReac Type Severity Reaction Status Date / Time No Known Allergies Allergy Verified 08/22/17 12:16 Results - Vital Signs Recent Vital Signs: Last Vital Signs Temp 98.2 F 08/23/17 07:00 Pulse 74 08/23/17 08:00 Resp 20 08/23/17 07:00 BP 99/62 L 08/23/17 07:00 Pulse Ox 94 L 08/23/17 07:00 - Labs Result Diagrams: 08/23/17 02:23 08/23/17 02:23 Labs: Laboratory Results - last 24 hr 08/22/17 08/22/17 08/23/17 16:44 20:12 02:23 WBC 7.6 RBC 3.74 L Hgb 12.5 Hct 35.4 MCV 94.7 H MCH 33.6 H MCHC 35.4 RDW 13.1 Plt Count 128 L MPV 8.0 Neut % (Auto) 58.9 Lymph % (Auto) 27.8 [place] % (Auto) 10.1 H Eos % (Auto) 2.4 Baso % (Auto) 0.8 Neut # (Auto) 4.5 Lymph # (Auto) 2.1 [place] # (Auto) 0.8 Eos # (Auto) 0.2 Baso # (Auto) 0.1 Differential Comment Sodium Potassium Chloride Carbon Dioxide Anion Gap BUN Creatinine Est GFR ( Amer) Est GFR (Non-Af Amer) Random Glucose Hemoglobin A1c Calcium Total Bilirubin AST ALT Alkaline Phosphatase Total Creatine Kinase 61 CK-MB (Mass) 1.78 Troponin I < 0.0120 NT-Pro-B Natriuret Pep 226 Total Protein Albumin Globulin Albumin/Globulin Ratio Triglycerides Cholesterol LDL Cholesterol Direct HDL Cholesterol Free T4 TSH 3rd Generation Hepatitis A IgM Ab Hep Bs Antigen Hep B Core IgM Ab Hepatitis C Antibody 08/23/17 08/23/17 08/23/17 02:23 02:23 02:23 WBC RBC Hgb Hct MCV MCH MCHC RDW Plt Count MPV Neut % (Auto) Lymph % (Auto) [place] % (Auto) Eos % (Auto) Baso % (Auto) Neut # (Auto) Lymph # (Auto) [place] # (Auto) Eos # (Auto) Baso # (Auto) Differential Comment Sodium 139 Potassium 3.7 Chloride 103 Carbon Dioxide 29 Anion Gap 11 BUN 15 Creatinine 0.8 Est GFR ( Amer) > 60 Est GFR (Non-Af Amer) > 60 Random Glucose 91 Hemoglobin A1c 5.5 Calcium 8.5 L Total Bilirubin 0.7 AST 16 L ALT 25 Alkaline Phosphatase 53 Total Creatine Kinase CK-MB (Mass) Troponin I NT-Pro-B Natriuret Pep Total Protein 5.7 L Albumin 3.3 L Globulin 2.4 Albumin/Globulin Ratio 1.3 Triglycerides 82 Cholesterol 106 LDL Cholesterol Direct 58 HDL Cholesterol 35 Free T4 1.59 TSH 3rd Generation 4.39 Hepatitis A IgM Ab Hep Bs Antigen Hep B Core IgM Ab Hepatitis C Antibody 08/23/17 08/23/17 02:23 02:23 WBC RBC Hgb Hct MCV MCH MCHC RDW Plt Count MPV Neut % (Auto) Lymph % (Auto) [place] % (Auto) Eos % (Auto) Baso % (Auto) Neut # (Auto) Lymph # (Auto) [place] # (Auto) Eos # (Auto) Baso # (Auto) Differential Comment Sodium Potassium Chloride Carbon Dioxide Anion Gap BUN Creatinine Est GFR ( Amer) Est GFR (Non-Af Amer) Random Glucose Hemoglobin A1c Calcium Total Bilirubin AST ALT Alkaline Phosphatase Total Creatine Kinase 45 L CK-MB (Mass) 1.71 Troponin I < 0.0120 NT-Pro-B Natriuret Pep Total Protein Albumin Globulin Albumin/Globulin Ratio Triglycerides Cholesterol LDL Cholesterol Direct HDL Cholesterol Free T4 TSH 3rd Generation Hepatitis A IgM Ab Negative Hep Bs Antigen Negative Hep B Core IgM Ab Negative Hepatitis C Antibody Negative
--- NOTE | 2017-08-23 22:25 | CP.PCM.PN ---
Subjective - Date & Time of Evaluation Date of Evaluation: 08/23/17 Time of Evaluation: 09:30 - Subjective Subjective: Patient seen and evaluated Denies chest pain and dyspnea Physical Exam - Constitutional Appears: Well, Non-toxic - Head Exam Head Exam: ATRAUMATIC, NORMAL INSPECTION - Eye Exam Eye Exam: EOMI Pupil Exam: NORMAL ACCOMODATION - ENT Exam ENT Exam: Mucous Membranes Moist - Neck Exam Neck exam: Positive for: Full Rom. Negative for: Lymphadenopathy - Respiratory Exam Respiratory Exam: Clear to Auscultation Bilateral, Wheezes (mild wheezing), NORMAL BREATHING PATTERN. absent: Rales, Rhonchi - Cardiovascular Exam Cardiovascular Exam: REGULAR RHYTHM, +S1, +S2 - GI/Abdominal Exam GI & Abdominal Exam: Normal Bowel Sounds, Soft. absent: Organomegaly, Pulsatile Mass, Rebound, Rigid, Tenderness - Rectal Exam Rectal Exam: Deferred - Extremities Exam Extremities exam: Positive for: full ROM. Negative for: calf tenderness, pedal edema - Back Exam Back exam: NORMAL INSPECTION. absent: CVA tenderness (L), CVA tenderness (R) - Neurological Exam Neurological exam: Alert, CN II-XII Intact, Oriented x3 - Psychiatric Exam Psychiatric exam: Normal Affect - Skin Skin Exam: Normal Color, Warm Objective - Vital Signs/Intake and Output Vital Signs (last 24 hours): Temp Pulse Resp BP Pulse Ox 98.2 F 74 20 99/62 L 94 L 08/23/17 07:00 08/23/17 08:00 08/23/17 07:00 08/23/17 07:00 08/23/17 07:00 - Labs Labs: 08/23/17 02:23 08/23/17 02:23 PT 11.5 SECONDS (9.7-12.2) 08/22/17 13:06 INR 1.1 08/22/17 13:06 APTT 29 SECONDS (21-34) 08/22/17 13:06 Assessment and Plan - Assessment and Plan (Free Text) Assessment: Chest pain r/o ACS Non cardiac chest pain Trops/BNP negative ECHO: EF 40% HLD -c/w atorvastatin 10mg daily -f/u lipid panel HTN -c/w lisinopril 2.5mg -c/w toprol XL 12.5mg BID Hypothyroidism -f/u TSH/Free T4 -c/w levothyroxine 75mcg COPD -c/w home meds (we do not have on formulary) -PRN breathing treatments for wheezing/SOB BPH -home med changed to tamsulosin 0.4mg daily Proph GI prophylaxis not indicated SCDs
== END 2017-08-23 13:50 | disposition home or self-care (01) | DRG 303 ==
LOC: C.ER 12:05 → C.9E 16:11 → C.6T 17:07
PROVIDERS: ADMIT Hospitalist; ATTEND Hospitalist
DX: I25.10 Atherosclerotic heart disease of native coronary artery without angina pectoris (principal); I11.0 Hypertensive heart disease with heart failure; J43.9 Emphysema, unspecified; J98.11 Atelectasis; I50.9 Heart failure, unspecified; E78.5 Hyperlipidemia, unspecified; E03.9 Hypothyroidism, unspecified; K21.9 Gastro-esophageal reflux disease without esophagitis; N40.0 Benign prostatic hyperplasia without lower urinary tract symptoms; M41.9 Scoliosis, unspecified; Z87.891 Personal history of nicotine dependence; Z95.1 Presence of aortocoronary bypass graft; Z95.5 Presence of coronary angioplasty implant and graft; Z90.49 Acquired absence of other specified parts of digestive tract; Z86.010 Personal history of colon polyps

== ENCOUNTER 2018-02-26 12:05 | Emergency (ER) | payer MEDICARE ==
[2018-02-26 12:05] VITALS: BMI 26.6
[2018-02-26 12:14] VITALS: BP 101/66; PULSE 87; RESP 16; TEMP 98.1; O2SAT 98
--- NOTE | 2018-02-26 12:51 | C.PDOC ---
History Of Present Illness 72 year old male, whose past medical history includes coronary artery disease and open heart surgery, presents to the ED for evaluation of cramping to right calf which has been intermittent since last night. Patient follows with Dr. Robertson. He states his last cath showed normal coronaries. Patient underwent lower extremity studies, which found that he was "borderline" but patient is unsure of what. He is able to bear weight and denies fever, chills. Time Seen by Provider: 02/26/18 12:24 Chief Complaint (Nursing): Lower Extremity Problem/Injury History Per: Patient History/Exam Limitations: no limitations Onset/Duration Of Symptoms: Intermittent Episodes Current Symptoms Are (Timing): Still Present Additional History Per: Patient Past Medical History Reviewed: Historical Data, Nursing Documentation, Vital Signs Vital Signs: Last Vital Signs Temp 98.1 F 02/26/18 12:10 Pulse 87 02/26/18 12:10 Resp 16 02/26/18 12:10 BP 101/66 02/26/18 12:10 Pulse Ox 98 02/26/18 12:10 - Medical History PMH: Anxiety, Asthma, Bronchitis, CAD, CHF, Colonic Polyps, COPD, Depression, Emphysema, HTN, Hyperlipidemia, Hypothyroidism Denies: Chronic Kidney Disease Surgical History: Appendectomy, CABG (Triple bypass Nov 1996), Coronary Stent, Endoscopy - [facility] Procedures CORONAR ARTERIOGR-2 CATH (05/23/13) ESOPHAGOGASTRODUODENOSCOPY [EGD] W/CLOSED BIOPSY (03/21/14) LEFT HEART CARDIAC CATH (05/23/13) LT HEART ANGIOCARDIOGRAM (05/23/13) MEASURE OF CARDIAC SAMPL & PRESSURE, L HEART, PERC APPROACH (11/28/15) PLAIN RADIOGRAPHY OF LEFT HEART USING OTHER CONTRAST (11/28/15) PLAIN RADIOGRAPHY OF MULT COR A GRAFT USING OTH CONTRAST (11/28/15) PLAIN RADIOGRAPHY OF MULT COR ART USING OTH CONTRAST (11/28/15) Family History: States: Unknown Family Hx - Social History Hx Tobacco Use: No Hx Alcohol Use: No (25 yrs ago) Hx Substance Use: No - Immunization History Hx Tetanus Toxoid Vaccination: No Hx Influenza Vaccination: Yes Hx Pneumococcal Vaccination: Yes Review Of Systems Constitutional: Negative for: Fever, Chills Musculoskeletal: Positive for: Other (right calf cramping ) Physical Exam - Physical Exam Appears: Non-toxic, No Acute Distress Skin: Normal Color, Warm, Dry Extremity: Normal ROM, No Calf Tenderness, Capillary Refill (less than 2 seconds ), No Other (swelling, erythema or tenderness to right lower extremity ) Pulses: Left Dorsalis Pedis: Normal, Right Dorsalis Pedis: Normal Neurological/Psych: Oriented x3, Normal Speech, Normal Cognition, Normal Sensation ED Course And Treatment O2 Sat by Pulse Oximetry: 98 (on RA) Pulse Ox Interpretation: Normal Medical Decision Making Medical Decision Making: Progress: Case discussed with Dr. Robertson, who states patient has peripheral artery disease. Explained to Dr. Robertson that patient has an unremarkable physical exam in the ED. Dr. Robertson states he will f/u with patient in office. Disposition Discussed With .: Karri Robertson Counseled Patient/Family Regarding: Diagnosis, Need For Followup - Disposition Referrals: Karri Robertson MD [Staff Provider] - Disposition: HOME/ ROUTINE Disposition Time: 12:49 Condition: STABLE Instructions: Muscle Spasms (DC) Forms: [facility] (Bangladeshi), General Discharge Instructions - POA Present On Arrival: None - Clinical Impression Clinical Impression: Muscle cramping - Scribe Statement The provider has reviewed the documentation as recorded by the Scribe (Elizabeth Tucker) Provider Attestation: All medical record entries made by the Scribe were at my direction and personally dictated by me. I have reviewed the chart and agree that the record accurately reflects my personal performance of the history, physical exam, me dical decision making, and the department course for this patient. I have also personally directed, reviewed, and agree with the discharge instructions and disposition.
== END 2018-02-26 12:56 | disposition home or self-care (01) ==
LOC: C.ER 12:05
DX: R25.2 Cramp and spasm (principal)

== ENCOUNTER 2018-05-23 22:34 | Observation (INO) | payer MEDICARE ==
[2018-05-23 22:35] VITALS: BMI 26.6
[2018-05-23] MEDS ORDERED: Sodium Chloride 0.9% 1,000 ML IV ONE (23:08)
[2018-05-23] MEDS ORDERED: Nitroglycerin 2% Ointment Foilpak UD TOP STA (23:09)
[2018-05-23 23:27] LABS: BASO % 0.8 % (0.0-2.0); EOS # 0.4 K/uL (0.0-0.7); EOS % 7.3 % (0.0-4.0); HEMOGLOBIN 13.2 g/dL (12.0-18.0); LYMPH # 1.9 K/uL (1.0-4.3); MEAN CELL VOLUME 98.8 fL (80.0-94.0); MEAN CORPUSCULAR HEMOGLOBIN 33.7 pg (27.0-31.0); MEAN CORPUSCULAR HGB CONC 34.1 g/dL (33.0-37.0); MEAN PLATELET VOLUME 8.5 fL (7.2-11.7); MONO # 0.6 K/uL (0.0-0.8); MONO % 10.4 % (0.0-10.0); NEUT # 2.5 K/uL (1.8-7.0); NEUT % 46.5 % (50.0-75.0); NRBC % 0.1 % (0.0-2.0); RBC 3.91 Mil/uL (4.40-5.90); RED CELL DISTRIBUTION WIDTH 12.7 % (11.5-14.5); WHITE BLOOD COUNT 5.4 K/uL (4.8-10.8)
[2018-05-23 23:39] LABS: ALB/GLOB RATIO 1.4 (1.0-2.1); ALBUMIN 3.8 g/dL (3.5-5.0); ALT/SGPT 18 U/L (21-72); AST/SGOT 20 U/L (17-59); BLOOD UREA NITROGEN 12 mg/dL (9-20); CALCIUM 8.9 mg/dl (8.6-10.4); GFR NON-AFRICAN AMERICAN > 60
[2018-05-23] MEDS ORDERED: Nitroglycerin 2% Ointment Foilpak UD TOP ONE (23:47)
--- NOTE | 2018-05-23 23:47 | C.PDOC ---
History Of Present Illness 72 year old male presents with chest pain intermittently for the past few hours, described as severe. Denies sweatiness or SOB. Patient took aspirin [employer]. Chief Complaint (Nursing): Chest Pain History Per: Patient History/Exam Limitations: no limitations Onset/Duration Of Symptoms: Hrs Current Symptoms Are (Timing): Still Present Modifying Factors: None Exacerbating Factors: None Alleviating Factors: None Recent travel outside of the [place]: No Past Medical History Reviewed: Historical Data, Nursing Documentation, Vital Signs Vital Signs: Last Vital Signs Temp 97.8 F 05/23/18 22:39 Pulse 86 05/23/18 22:39 Resp 19 05/23/18 22:39 BP 103/61 05/23/18 22:39 Pulse Ox 93 L 05/23/18 22:39 - Medical History PMH: Anxiety, Asthma, Bronchitis, CAD, CHF, Colonic Polyps, COPD, Depression, Emphysema, HTN, Hyperlipidemia, Hypothyroidism Denies: Chronic Kidney Disease Surgical History: Appendectomy, CABG (Triple bypass Nov 1996), Coronary Stent, Endoscopy - [facility] Procedures CORONAR ARTERIOGR-2 CATH (05/23/13) ESOPHAGOGASTRODUODENOSCOPY [EGD] W/CLOSED BIOPSY (03/21/14) LEFT HEART CARDIAC CATH (05/23/13) LT HEART ANGIOCARDIOGRAM (05/23/13) MEASURE OF CARDIAC SAMPL & PRESSURE, L HEART, PERC APPROACH (11/28/15) PLAIN RADIOGRAPHY OF LEFT HEART USING OTHER CONTRAST (11/28/15) PLAIN RADIOGRAPHY OF MULT COR A GRAFT USING OTH CONTRAST (11/28/15) PLAIN RADIOGRAPHY OF MULT COR ART USING OTH CONTRAST (11/28/15) Family History: States: Unknown Family Hx - Social History Hx Tobacco Use: No Hx Alcohol Use: No (25 yrs ago) Hx Substance Use: No - Immunization History Hx Tetanus Toxoid Vaccination: No Hx Influenza Vaccination: Yes Hx Pneumococcal Vaccination: Yes Review Of Systems Constitutional: Negative for: Fever, Chills, Sweats Cardiovascular: Positive for: Chest Pain. Negative for: Palpitations Respiratory: Negative for: Cough, Shortness of Breath Gastrointestinal: Negative for: Nausea, Vomiting Neurological: Negative for: Weakness, Numbness Physical Exam - Physical Exam Appears: Non-toxic Skin: Normal Color, Warm, Dry Head: Atraumatic, Normacephalic Eye(s): bilateral: Normal Inspection Oral Mucosa: Moist Neck: Normal, Supple Chest: Other (Sternotomy scar) Cardiovascular: Rhythm Regular Respiratory: Normal Breath Sounds, No Rales, No Rhonchi, No Wheezing Gastrointestinal/Abdominal: Soft, No Tenderness Neurological/Psych: Oriented x3, Normal Speech ED Course And Treatment - Laboratory Results Result Diagrams: 05/23/18 23:23 05/23/18 23:23 Lab Results: D-Dimer, Quantitative 441 ng/mlDDU (0-243) H 05/23/18 23:23 Total Bilirubin 0.8 mg/dL (0.2-1.3) 05/23/18 23:23 AST 20 U/L (17-59) 05/23/18 23:23 ALT 18 U/L (21-72) L D 05/23/18 23:23 Alkaline Phosphatase 81 U/L (38-126) 05/23/18 23:23 Total Protein 6.5 g/dL (6.3-8.3) 05/23/18 23:23 Albumin 3.8 g/dL (3.5-5.0) 05/23/18 23:23 Globulin 2.7 gm/dL (2.2-3.9) 05/23/18 23:23 Albumin/Globulin Ratio 1.4 (1.0-2.1) 05/23/18 23:23 O2 Sat by Pulse Oximetry: 93 Progress Note: EKG, blood work, and CXR ordered. Aspirin and IV fluids administered. Nitrobid applied. Disposition Discussed With Dr.: Darrin Tucker Doctor Will See Patient In The: Hospital Counseled Patient/Family Regarding: Diagnosis - Disposition Disposition: HOSPITALIZED Disposition Time: 03:12 Condition: STABLE Forms: [facility] (Eritrean) - Clinical Impression Clinical Impression: Chest pain - Scribe Statement The provider has reviewed the documentation as recorded by the Scribe Manuelito Sanchez All medical record entries made by the Scribe were at my direction and personally dictated by me. I have reviewed the chart and agree that the record accurately reflects my personal performance of the history, physical exam, medical decision making, and the department course for this patient. I have also personally directed, reviewed, and agree with the discharge instructions and disposition.
[2018-05-24] MEDS ORDERED: Iodixanol 320 MG/ML 100 ML BOTTLE IV ONE (00:36)
[2018-05-24] MEDS ORDERED: Enoxaparin 40 mg Syringe SC ONE (06:02)
[2018-05-24] MEDS ORDERED: LEVALBUTEROL INH PRN (06:04)
[2018-05-24] MEDS: Sodium Chloride 0.9% 1,000 ML IV SCH (06:15)
[2018-05-24] MEDS ORDERED: Sodium Chloride 0.9% 1,000 ML IV SCH (06:15)
[2018-05-24 08:12] LABS: CK-MB 1.44 ng/mL (0.0-3.38)
[2018-05-24] MEDS: Enoxaparin 40 mg Syringe SC SCH (09:20)
[2018-05-24] MEDS: Tiotropium 18 mcg Cap For Inhalation IH SCH ×3 (09:21→17:03)
[2018-05-24] MEDS ORDERED: Home Med 1 UNIT (Atorvastatin [Lipitor] 10 MG) PO SCH (10:00)
[2018-05-24] MEDS ORDERED: ASCORBIC ACID 1000 MG PO SCH (10:00)
[2018-05-24] MEDS ORDERED: Levothyroxine 75 MCG TAB PO SCH (10:00)
[2018-05-24] MEDS ORDERED: Ergocalciferol 50,000 Intl Units Cap PO SCH (10:00)
[2018-05-24] MEDS ORDERED: CHOLECALCIFEROL PO SCH (10:00)
[2018-05-24] MEDS: ALFUZOSIN HCL 10 MG PO SCH ×2 (10:46→17:03)
--- NOTE | 2018-05-24 11:43 | CT ---
Date of service: 05/24/2018 PROCEDURE: CT Chest with contrast (Pulmonary Angiogram) HISTORY: chest pain/ elevated dimer COMPARISON: None available. TECHNIQUE: Axial computed tomography images were obtained of the chest in the pulmonary arterial phase of enhancement. Coronal and sagittal reformatted images were created and reviewed. Intravenous contrast dose: Radiation dose: Total exam DLP = 447.26 mGy-cm. This CT exam was performed using one or more of the following dose reduction techniques: Automated exposure control, adjustment of the mA and/or kV according to patient size, and/or use of iterative reconstruction technique. FINDINGS: PULMONARY ARTERIES: Unremarkable. No pulmonary embolism. AORTA: No acute findings. No thoracic aortic aneurysm. LUNGS: Scattered bibasilar fibrotic change/discoid atelectasis. PLEURAL SPACES: Minimal right pleural thickening. HEART: Unremarkable. No cardiomegaly. No significant pericardial effusion. LYMPH NODES: No lymphadenopathy. BONES, CHEST WALL: Unremarkable. No fracture or destructive lesion OTHER FINDINGS: Unremarkable. IMPRESSION: No pulmonary embolism.
--- NOTE | 2018-05-24 15:30 | RAD ---
Date of service: 05/23/2018 PROCEDURE: CHEST RADIOGRAPH, 1 VIEW HISTORY: chest pain COMPARISON: 08/22/2017 FINDINGS: LUNGS: Lung volumes lower limits of normal. No consolidation seen. Trace bibasilar discoid atelectasis. PLEURA: No pneumothorax or significant appearing pleural fluid seen. Trace bilateral pleural effusions and/or trace bilateral areas of pleural thickening possible. CARDIOVASCULAR: There is presence of aortic atherosclerotic calcification on x-ray. Thoracic aorta is tortuous and unfolded and prominent yet similar in appearance probable minimal cardiomegaly. No significant appearing pulmonary venous congestion. OSSEOUS STRUCTURES: Bilateral shoulder arthrosis. Midline sternotomy. VISUALIZED UPPER ABDOMEN: Normal. OTHER FINDINGS: None. IMPRESSION: No interval pathology noted. Trace bibasilar discoid atelectasis suggested. Other findings as above.
[2018-05-24] MEDS ORDERED: Albuterol 0.083% Inhal Sol (2.5 mg/3 mL) UD INH PRN (17:30)
--- NOTE | 2018-05-24 17:48 | CP.PCM.HP ---
History of Present Illness - History of Present Illness History of Present Illness: 73-year-old male complaining of chest pain No shortness of breath No sweats No nausea No vomiting No dizziness No palpitations Past Patient History - Infectious Disease Hx of Infectious Diseases: None - Past Medical History & Family History Past Medical History?: Yes - Past Social History Smoking Status: Former Smoker - CARDIAC Hx Congestive Heart Failure: Yes Hx Hypertension: Yes - PULMONARY Hx Asthma: Yes Hx Bronchitis: Yes Hx Chronic Obstructive Pulmonary Disease (COPD): Yes Hx Emphysema: Yes - NEUROLOGICAL Hx Neurological Disorder: No - HEENT Hx HEENT Problems: No Other/Comment: wears glasses to see and read - RENAL Hx Chronic Kidney Disease: No - ENDOCRINE/METABOLIC Hx Hypothyroidism: Yes - HEMATOLOGICAL/ONCOLOGICAL Hx Blood Disorders: No - INTEGUMENTARY Hx Dermatological Problems: No - MUSCULOSKELETAL/RHEUMATOLOGICAL Hx Musculoskeletal Disorders: Yes Hx Back Pain: Yes (herniated disc ,arthitis slipped disc,scoliosis) Hx Falls: No Hx Herniated Disk: Yes - GASTROINTESTINAL Hx Gastrointestinal Disorders: Yes Hx Gastroesophageal Reflux: Yes - GENITOURINARY/GYNECOLOGICAL Hx Genitourinary Disorders: Yes Hx Prostate Problems: Yes ("enlarged prostate") Other/Comment: prostate biopsy in June 2015 - PSYCHIATRIC Hx Anxiety: Yes Hx Depression: Yes Hx Substance Use: No - SURGICAL HISTORY Hx Appendectomy: Yes Hx Coronary Artery Bypass Graft: Yes (Triple bypass Nov 1996) Hx Coronary Stent: Yes - ANESTHESIA Hx Anesthesia: Yes Hx Anesthesia Reactions: No Hx Malignant Hyperthermia: No Meds Allergies/Adverse Reactions: Allergies Allergy/AdvReac Type Severity Reaction Status Date / Time No Known Allergies Allergy Verified 02/26/18 12:14 Physical Exam - Constitutional Appears: Well - Head Exam Head Exam: ATRAUMATIC, NORMAL INSPECTION, NORMOCEPHALIC - Eye Exam Eye Exam: EOMI, Normal appearance, PERRL Pupil Exam: NORMAL ACCOMODATION, PERRL - ENT Exam ENT Exam: Mucous Membranes Moist, Normal Exam - Neck Exam Neck exam: Positive for: Normal Inspection - Respiratory Exam Respiratory Exam: Decreased Breath Sounds - Cardiovascular Exam Cardiovascular Exam: REGULAR RHYTHM, +S1, +S2 - GI/Abdominal Exam GI & Abdominal Exam: Diminished Bowel Sounds, Soft - Rectal Exam Rectal Exam: Deferred Results - Vital Signs Recent Vital Signs: Last Vital Signs Temp 97.5 F L 05/24/18 15:30 Pulse 71 05/24/18 15:30 Resp 20 03/14/19 15:05 BP 97/58 L 05/24/18 15:30 Pulse Ox 94 L 05/24/18 15:30 - Labs Result Diagrams: 05/23/18 23:23 05/23/18 23:23 Labs: Laboratory Results - last 24 hr 05/23/18 05/23/18 05/23/18 23:23 23:23 23:23 WBC 5.4 RBC 3.91 L Hgb 13.2 Hct 38.7 MCV 98.8 H D MCH 33.7 H MCHC 34.1 RDW 12.7 Plt Count 165 MPV 8.5 Neut % (Auto) 46.5 L Lymph % (Auto) 35.0 [place] % (Auto) 10.4 H Eos % (Auto) 7.3 H Baso % (Auto) 0.8 Neut # (Auto) 2.5 Lymph # (Auto) 1.9 [place] # (Auto) 0.6 Eos # (Auto) 0.4 Baso # (Auto) 0.0 D-Dimer, Quantitative 441 H Sodium 139 Potassium 4.1 Chloride 100 Carbon Dioxide 30 Anion Gap 13 BUN 12 Creatinine 0.8 Est GFR ( Amer) > 60 Est GFR (Non-Af Amer) > 60 Random Glucose 101 Calcium 8.9 Total Bilirubin 0.8 AST 20 ALT 18 L D Alkaline Phosphatase 81 Total Creatine Kinase CK-MB (Mass) Troponin I < 0.0120 Total Protein 6.5 Albumin 3.8 Globulin 2.7 Albumin/Globulin Ratio 1.4 05/24/18 07:37 WBC RBC Hgb Hct MCV MCH MCHC RDW Plt Count MPV Neut % (Auto) Lymph % (Auto) [place] % (Auto) Eos % (Auto) Baso % (Auto) Neut # (Auto) Lymph # (Auto) [place] # (Auto) Eos # (Auto) Baso # (Auto) D-Dimer, Quantitative Sodium Potassium Chloride Carbon Dioxide Anion Gap BUN Creatinine Est GFR ( Amer) Est GFR (Non-Af Amer) Random Glucose Calcium Total Bilirubin AST ALT Alkaline Phosphatase Total Creatine Kinase 47 L CK-MB (Mass) 1.44 Troponin I < 0.0120 Total Protein Albumin Globulin Albumin/Globulin Ratio
[2018-05-24 18:24] LABS: CK-MB 1.43 ng/mL (0.0-3.38)
[2018-05-24 20:47] LABS: CK-MB 1.35 ng/mL (0.0-3.38)
[2018-05-25] MEDS: Sodium Chloride 0.9% 1,000 ML IV SCH ×2 (04:58→22:30)
[2018-05-25] MEDS: Levothyroxine 75 MCG TAB PO SCH (05:31)
[2018-05-25] MEDS ORDERED: Caffeine Citrated **INJ** 20 MG/ML IV ONE (08:13)
[2018-05-25] MEDS: Enoxaparin 40 mg Syringe SC SCH (13:12)
--- NOTE | 2018-05-25 17:02 | CARD ---
APPROVED REPORT Date of service: 05/25/2018 Protocol: LEXISCAN Test Type: LEXISCAN STRESS Test Indications: CP Medical History: CP Target HR: 148 bpm Resting ECG: SINUS RHYTHM WITH NS ST T CHANGES Resting Heart Rate: 94 bpm Resting Blood Pressure: 126/80mmHg submaximum (85%): 126 bpm TEST SUMMARY PREINFSNHYPERV.25:[id number]/80.9. INFUSIONDOSE 100:300.00.01.096/.8. CFAALLHIM75:140.00..825361/80.1. PROCEDURE Pharmacologic stress testing was performed using 0.4mg per 5ml of regadenoson given intravenously over 7-10 seconds. POST EXERCISE Reason for Termination: Protocol Completed Target HR: No Max HR: 96 bpm 72% of Maximum Predicted HR: 148 bpm Exercise duration: 00:30 min:sec, 0 Stage Exercise capacity: 1.0METs Max Blood Pressure: 128/80mmHg Blood Pressure response to exercise: normal resting BP - appropriate response Heart Rate response to exercise: appropriate Chest Pain: No, none Angina index: 0 Arrhythmia: Yes, OCC VPB'S ST Change: No, NONE FROM BASELINE Deviation: 0 mm INTERPRETATION Stress EKG Conclusion: NEGATIVE LEXISCAN STRESS TEST NORMAL BP RESPONSE TO LEXISCAN VPB'S; ONE 4 BEAT V-TACH NOTED NUCLEAR STUDIES TO BE READF SEPARATELY EXAM: Myocardial Perfusion STRESS/REST Imaging Protocol The imaging protocol used to acquire images was Stress Tc-99m/rest Tc-99m 1 day Rest Spect myocardial perfusion imaging was performed in supine position 45 minutes following the injection of 32.5 mCi of Tc-99 Myoview. Gated Stress Spect was performed 45 minutes after intravenous 12.8 mCi Tc-99 Myoview injection. The images were gated to evaluate regional wall motion and calculate ventricular ejection fraction.Images were reconstructed using backfilter projection method in short horizontal and verticle long axis. Spect slices were generated. RESTING DATA [id number]/min1/3 Pk. Filling Rate0.53EDV/sec LV Time to Pk. Filling Hkqx394.88msec ESV55.00mlMyocardial Qnmp700.00gLV Time to Pk. Ejection Rate91.66msec Pk. Fill Rate3.95EDV/secAv. Heart Rate85.00bpm EF51.00%Pk. Emptying Rate3.48ESV/sec STRESS DATA WYY994.86mrYW0.60L/min ESV33.00mlMyocardial Pvns050.00g Pk. Fill Rate3.89EDV/sec EF69.00%Pk. Emptying Rate4.14ESV/sec 1/3 Pk. Filling Rate0.73EDV/secRegional WT score at stress:1.00 LV Time to Pk. Filling Rate:163.28msecRegional WM score at stress:0.00 LV Time to Pk. Ejection Rate:165.25msecSummed WT score at stress:13.00 Av. Heart Rate92.00bpmSummed WM score at stress:11.00 LV Perf. Quant 17 Seg. SSS16.00 17 Seg. SRS12.00 17 Seg. SDS4.00 Stress Defect Extent (% LAD)0.00Rest Defect Extent (% LAD)0.00Rev. Defect Extent (% LAD)0.00 Stress Defect Extent (% LCX)63.80Rest Defect Extent (% LCX)72.50Rev. Defect Extent (% LCX)2.50 Stress Defect Extent (% RCA)34.40Rest Defect Extent (% RCA)21.10Rev. Defect Extent (% RCA)8.90 Stress Defect Extent (% TITUS)24.30Rest Defect Extent (% TITUS)24.30Rev. Defect Extent (% TITUS)2.20 IMPRESSION Abnormal Myocardial Perfusion exercise stress study Left Ventricle LV Function:Left ventricle systolic function is normal. The Ejection Fraction is 65-70%. Metabolism/Perfusion Defects: There is fixed defect in the infero-lateral LV wall with partial reversibility consistent with trae-infarct ischemia. Conclusion 1. There is fixed defect in the infero-lateral LV wall with partial reversibility consistent with trae-infarct ischemia. 2. Left ventricle systolic function is normal. 3. The Ejection Fraction is 65-70%.
--- NOTE | 2018-05-25 19:37 | CP.PCM.PN ---
Subjective - Date & Time of Evaluation Date of Evaluation: 05/25/18 Time of Evaluation: 09:45 - Subjective Subjective: Complaining of chest pain Denies nausea Denies vomiting Denies palpitations Denies SOB Objective - Vital Signs/Intake and Output Vital Signs (last 24 hours): Temp Pulse Resp BP Pulse Ox 97.7 F 81 20 110/63 96 05/25/18 15:00 05/25/18 15:00 05/25/18 15:00 05/25/18 15:00 05/25/18 15:55 - Medications Medications: Current Medications Albuterol Sulfate (Albuterol 0.083% Inhal Stacie (2.5 Mg/3 Ml) Ud) 2.5 mg INH RQ6 PRN PRN Reason: SHORTNESS OF BREATH Alprazolam (Xanax) 1 mg PO QID [facility] Last Admin: 05/25/18 17:37 Dose: 1 mg Ascorbic Acid (Vitamin C 500 Mg Tab) 1,000 mg PO DAILY [facility] Last Admin: 05/25/18 13:26 Dose: 1,000 mg Aspirin (Aspirin Chewable) 81 mg PO DAILY [facility] Last Admin: 05/25/18 13:11 Dose: 81 mg Clopidogrel Bisulfate (Plavix) 75 mg PO DAILY [facility] Last Admin: 05/25/18 13:11 Dose: 75 mg Enoxaparin Sodium (Lovenox) 40 mg SC DAILY [facility] Last Admin: 05/25/18 13:12 Dose: 40 mg Ergocalciferol (Drisdol 50,000 Intl Units Cap) 1 cap PO QD7 [facility] Last Admin: 05/25/18 13:12 Dose: 1 cap Famotidine (Pepcid) 20 mg PO DAILY [facility] Last Admin: 05/25/18 13:10 Dose: 20 mg Furosemide (Lasix) 20 mg PO MWF [facility] Last Admin: 05/25/18 13:13 Dose: 20 mg Sodium Chloride (Sodium Chloride 0.9%) 1,000 mls @ 50 mls/hr IV .Q20H [facility] Last Admin: 05/25/18 04:58 Dose: Not Given Levothyroxine Sodium (Synthroid) 75 mcg PO DAILY@0630 [facility] Last Admin: 05/25/18 05:31 Dose: Not Given Rosuvastatin Calcium (Crestor) 5 mg PO HS [facility] Last Admin: 05/24/18 21:45 Dose: 5 mg Tamsulosin HCl (Flomax) 0.4 mg PO DAILY [facility] Tiotropium [place] (Spiriva) 18 mcg IH RQ24 [facility] - Labs Labs: 05/23/18 23:23 05/23/18 23:23 - Constitutional Appears: Well - Head Exam Head Exam: ATRAUMATIC, NORMAL INSPECTION, NORMOCEPHALIC - Eye Exam Eye Exam: EOMI, Normal appearance, PERRL Pupil Exam: NORMAL ACCOMODATION, PERRL - ENT Exam ENT Exam: Mucous Membranes Moist, Normal Exam - Neck Exam Neck Exam: Full ROM, Normal Inspection. absent: Lymphadenopathy - Respiratory Exam Respiratory Exam: Decreased Breath Sounds - Cardiovascular Exam Cardiovascular Exam: REGULAR RHYTHM, +S1, +S2 - GI/Abdominal Exam GI & Abdominal Exam: Soft, Diminished Bowel Sounds - Rectal Exam Rectal Exam: Deferred Assessment and Plan - Assessment and Plan (Free Text) Plan: Albuterol Xanax Vitamin C Aspirin chewable Plavix Lovenox Drisdol Pepcid Lasix IV fluids Synthroid Crestor Flomax Spiriva Meds reviewed Labs reviewed Vitals reviewed
[2018-05-26] MEDS: Levothyroxine 75 MCG TAB PO SCH (05:50)
[2018-05-26] MEDS ORDERED: Tiotropium 18 mcg Cap For Inhalation IH SCH (08:00)
[2018-05-26] MEDS: Enoxaparin 40 mg Syringe SC SCH (10:20)
[2018-05-26] MEDS: Sodium Chloride 0.9% 1,000 ML IV SCH (18:15)
--- NOTE | 2018-05-26 18:34 | CP.PCM.PN ---
Subjective - Date & Time of Evaluation Date of Evaluation: 05/26/18 Time of Evaluation: 09:00 - Subjective Subjective: Patient seen and examined today No nausea No vomiting No fever No diarrhea No dizziness No shortness of breath Objective - Vital Signs/Intake and Output Vital Signs (last 24 hours): Temp Pulse Resp BP Pulse Ox 97.3 F L 79 20 96/59 L 98 05/26/18 16:00 05/26/18 16:00 05/26/18 16:00 05/26/18 16:00 05/26/18 16:00 Intake and Output: 05/26/18 05/26/18 06:59 18:59 Intake Total 500 Balance 500 - Medications Medications: Current Medications Albuterol Sulfate (Albuterol 0.083% Inhal Stacie (2.5 Mg/3 Ml) Ud) 2.5 mg INH RQ6 PRN PRN Reason: SHORTNESS OF BREATH Alprazolam (Xanax) 1 mg PO QID [facility] Last Admin: 05/26/18 18:31 Dose: 1 mg Ascorbic Acid (Vitamin C 500 Mg Tab) 1,000 mg PO DAILY [facility] Last Admin: 05/26/18 10:29 Dose: 1,000 mg Aspirin (Aspirin Chewable) 81 mg PO DAILY [facility] Last Admin: 05/26/18 10:20 Dose: 81 mg Clopidogrel Bisulfate (Plavix) 75 mg PO DAILY [facility] Last Admin: 05/26/18 10:20 Dose: 75 mg Enoxaparin Sodium (Lovenox) 40 mg SC DAILY [facility] Last Admin: 05/26/18 10:20 Dose: 40 mg Ergocalciferol (Drisdol 50,000 Intl Units Cap) 1 cap PO QD7 [facility] Last Admin: 05/25/18 13:12 Dose: 1 cap Famotidine (Pepcid) 20 mg PO DAILY [facility] Last Admin: 05/26/18 10:19 Dose: 20 mg Furosemide (Lasix) 20 mg PO MWF [facility] Last Admin: 05/25/18 13:13 Dose: 20 mg Sodium Chloride (Sodium Chloride 0.9%) 1,000 mls @ 50 mls/hr IV .Q20H [facility] Last Admin: 05/25/18 22:30 Dose: Not Given Levothyroxine Sodium (Synthroid) 75 mcg PO DAILY@0630 [facility] Last Admin: 03/16/19 05:50 Dose: 75 mcg Rosuvastatin Calcium (Crestor) 5 mg PO HS [facility] Last Admin: 05/25/18 22:31 Dose: 5 mg Tamsulosin HCl (Flomax) 0.4 mg PO DAILY [facility] Last Admin: 05/26/18 10:20 Dose: 0.4 mg Tiotropium [place] (Spiriva) 18 mcg IH RQ24 [facility] - Labs Labs: 05/23/18 23:23 05/23/18 23:23 - Constitutional Appears: Well - Head Exam Head Exam: ATRAUMATIC, NORMAL INSPECTION, NORMOCEPHALIC - Eye Exam Eye Exam: EOMI, Normal appearance, PERRL Pupil Exam: NORMAL ACCOMODATION, PERRL - ENT Exam ENT Exam: Mucous Membranes Moist, Normal Exam - Neck Exam Neck Exam: Full ROM, Normal Inspection. absent: Lymphadenopathy - Respiratory Exam Respiratory Exam: Decreased Breath Sounds - Cardiovascular Exam Cardiovascular Exam: REGULAR RHYTHM, +S1, +S2 - GI/Abdominal Exam GI & Abdominal Exam: Soft, Diminished Bowel Sounds - Rectal Exam Rectal Exam: Deferred Assessment and Plan - Assessment and Plan (Free Text) Plan: Albuterol Xanax Vitamin C Aspirin chewable Plavix Lovenox Drisdol Pepcid Lasix IV fluids Synthroid Crestor Flomax Spiriva Meds reviewed Labs reviewed Vitals reviewed
--- NOTE | 2018-05-26 21:49 | CP.PCM.PN ---
Subjective - Date & Time of Evaluation Date of Evaluation: 05/26/18 Time of Evaluation: 10:30 - Subjective Subjective: Patient seen and evaluated Feels better No chest pain or dyspnea Review Of Systems Constitutional: Negative for: Fever, Chills, Sweats Cardiovascular: Positive for: Chest Pain. Negative for: Palpitations Respiratory: Negative for: Cough, Shortness of Breath Gastrointestinal: Negative for: Nausea, Vomiting Neurological: Negative for: Weakness, Numbness Physical Exam - Physical Exam Appears: Non-toxic Skin: Normal Color, Warm, Dry Head: Atraumatic, Normacephalic Eye(s): bilateral: Normal Inspection Oral Mucosa: Moist Neck: Normal, Supple Chest: Other (Sternotomy scar) Cardiovascular: Rhythm Regular Respiratory: Normal Breath Sounds, No Rales, No Rhonchi, No Wheezing Gastrointestinal/Abdominal: Soft, No Tenderness Neurological/Psych: Oriented x3, Normal Speech Objective - Vital Signs/Intake and Output Vital Signs (last 24 hours): Temp Pulse Resp BP Pulse Ox 98.0 F 84 20 98/64 L 96 05/26/18 20:26 05/26/18 20:26 05/26/18 20:26 05/26/18 20:26 05/26/18 20:26 - Medications Medications: Current Medications Albuterol Sulfate (Albuterol 0.083% Inhal Stacie (2.5 Mg/3 Ml) Ud) 2.5 mg INH RQ6 PRN PRN Reason: SHORTNESS OF BREATH Alprazolam (Xanax) 1 mg PO QID [facility] Last Admin: 05/26/18 18:31 Dose: 1 mg Ascorbic Acid (Vitamin C 500 Mg Tab) 1,000 mg PO DAILY [facility] Last Admin: 05/26/18 10:29 Dose: 1,000 mg Aspirin (Aspirin Chewable) 81 mg PO DAILY [facility] Last Admin: 05/26/18 10:20 Dose: 81 mg Clopidogrel Bisulfate (Plavix) 75 mg PO DAILY [facility] Last Admin: 05/26/18 10:20 Dose: 75 mg Enoxaparin Sodium (Lovenox) 40 mg SC DAILY [facility] Last Admin: 05/26/18 10:20 Dose: 40 mg Ergocalciferol (Drisdol 50,000 Intl Units Cap) 1 cap PO QD7 [facility] Last Admin: 05/25/18 13:12 Dose: 1 cap Famotidine (Pepcid) 20 mg PO DAILY [facility] Last Admin: 05/26/18 10:19 Dose: 20 mg Furosemide (Lasix) 20 mg PO MWF [facility] Last Admin: 05/25/18 13:13 Dose: 20 mg Home Med (Patient's Own Inhaler) 2 puff INH Q24H [facility] Home Med (Patient's Own Medication) 1 tab PO DAILY [facility] Sodium Chloride (Sodium Chloride 0.9%) 1,000 mls @ 50 mls/hr IV .Q20H [facility] Last Admin: 05/25/18 22:30 Dose: Not Given Levothyroxine Sodium (Synthroid) 75 mcg PO DAILY@0630 [facility] Last Admin: 05/26/18 05:50 Dose: 75 mcg Rosuvastatin Calcium (Crestor) 5 mg PO HS [facility] Last Admin: 05/25/18 22:31 Dose: 5 mg Tamsulosin HCl (Flomax) 0.4 mg PO DAILY [facility] Last Admin: 05/26/18 10:20 Dose: 0.4 mg - Labs Labs: 05/23/18 23:23 05/23/18 23:23 Assessment and Plan - Assessment and Plan (Free Text) Assessment: Chest pain r/o ACS chest pain Trops/BNP negative ECHO: EF 40% Abnormal stress test For Cardiac Cath on Monday HLD -c/w atorvastatin 10mg daily -f/u lipid panel HTN -c/w lisinopril 2.5mg -c/w toprol XL 12.5mg BID Hypothyroidism -f/u TSH/Free T4 -c/w levothyroxine 75mcg COPD -c/w home meds (we do not have on formulary) -PRN breathing treatments for wheezing/SOB BPH -home med changed to tamsulosin 0.4mg daily Proph GI prophylaxis not indicated SCDs
--- NOTE | 2018-05-26 21:49 | CP.PCM.CON ---
History of Present Illness - History of Present Illness History of Present Illness: 72 year old male presents with chest pain intermittently for the past few hours, described as severe. Denies sweatiness or SOB. Patient took aspirin [employer]. Chief Complaint (Nursing): Chest Pain History Per: Patient History/Exam Limitations: no limitations Onset/Duration Of Symptoms: Hrs Current Symptoms Are (Timing): Still Present Modifying Factors: None Exacerbating Factors: None Alleviating Factors: None Recent travel outside of the [place]: No - Medical History PMH: Anxiety, Asthma, Bronchitis, CAD, CHF, Colonic Polyps, COPD, Depression, Emphysema, HTN, Hyperlipidemia, Hypothyroidism Denies: Chronic Kidney Disease Surgical History: Appendectomy, CABG (Triple bypass Nov 1996), Coronary Stent, Endoscopy - [facility] Procedures CORONAR ARTERIOGR-2 CATH (05/23/13) ESOPHAGOGASTRODUODENOSCOPY [EGD] W/CLOSED BIOPSY (03/21/14) LEFT HEART CARDIAC CATH (05/23/13) LT HEART ANGIOCARDIOGRAM (05/23/13) MEASURE OF CARDIAC SAMPL & PRESSURE, L HEART, PERC APPROACH (11/28/15) PLAIN RADIOGRAPHY OF LEFT HEART USING OTHER CONTRAST (11/28/15) PLAIN RADIOGRAPHY OF MULT COR A GRAFT USING OTH CONTRAST (11/28/15) PLAIN RADIOGRAPHY OF MULT COR ART USING OTH CONTRAST (11/28/15) Family History: States: Unknown Family Hx - Social History Hx Tobacco Use: No Hx Alcohol Use: No (25 yrs ago) Hx Substance Use: No - Immunization History Hx Tetanus Toxoid Vaccination: No Hx Influenza Vaccination: Yes Hx Pneumococcal Vaccination: Yes Review Of Systems Constitutional: Negative for: Fever, Chills, Sweats Cardiovascular: Positive for: Chest Pain. Negative for: Palpitations Respiratory: Negative for: Cough, Shortness of Breath Gastrointestinal: Negative for: Nausea, Vomiting Neurological: Negative for: Weakness, Numbness Physical Exam - Physical Exam Appears: Non-toxic Skin: Normal Color, Warm, Dry Head: Atraumatic, Normacephalic Eye(s): bilateral: Normal Inspection Oral Mucosa: Moist Neck: Normal, Supple Chest: Other (Sternotomy scar) Cardiovascular: Rhythm Regular Respiratory: Normal Breath Sounds, No Rales, No Rhonchi, No Wheezing Gastrointestinal/Abdominal: Soft, No Tenderness Neurological/Psych: Oriented x3, Normal Speech Past Patient History - Infectious Disease Hx of Infectious Diseases: None - Past Medical History & Family History Past Medical History?: Yes - Past Social History Smoking Status: Former Smoker - CARDIAC Hx Congestive Heart Failure: Yes Hx Hypertension: Yes - PULMONARY Hx Asthma: Yes Hx Bronchitis: Yes Hx Chronic Obstructive Pulmonary Disease (COPD): Yes Hx Emphysema: Yes - NEUROLOGICAL Hx Neurological Disorder: No - HEENT Hx HEENT Problems: No Other/Comment: wears glasses to see and read - RENAL Hx Chronic Kidney Disease: No - ENDOCRINE/METABOLIC Hx Hypothyroidism: Yes - HEMATOLOGICAL/ONCOLOGICAL Hx Blood Disorders: No - INTEGUMENTARY Hx Dermatological Problems: No - MUSCULOSKELETAL/RHEUMATOLOGICAL Hx Musculoskeletal Disorders: Yes Hx Back Pain: Yes (herniated disc ,arthitis slipped disc,scoliosis) Hx Falls: No Hx Herniated Disk: Yes - GASTROINTESTINAL Hx Gastrointestinal Disorders: Yes Hx Gastroesophageal Reflux: Yes - GENITOURINARY/GYNECOLOGICAL Hx Genitourinary Disorders: Yes Hx Prostate Problems: Yes ("enlarged prostate") Other/Comment: prostate biopsy in June 2015 - PSYCHIATRIC Hx Anxiety: Yes Hx Depression: Yes Hx Substance Use: No - SURGICAL HISTORY Hx Appendectomy: Yes Hx Coronary Artery Bypass Graft: Yes (Triple bypass Nov 1996) Hx Coronary Stent: Yes - ANESTHESIA Hx Anesthesia: Yes Hx Anesthesia Reactions: No Hx Malignant Hyperthermia: No Meds Allergies/Adverse Reactions: Allergies Allergy/AdvReac Type Severity Reaction Status Date / Time No Known Allergies Allergy Verified 02/26/18 12:14 - Medications Medications: Current Medications Albuterol Sulfate (Albuterol 0.083% Inhal Stacie (2.5 Mg/3 Ml) Ud) 2.5 mg INH RQ6 PRN PRN Reason: SHORTNESS OF BREATH Alprazolam (Xanax) 1 mg PO QID [facility] Last Admin: 05/26/18 18:31 Dose: 1 mg Ascorbic Acid (Vitamin C 500 Mg Tab) 1,000 mg PO DAILY [facility] Last Admin: 05/26/18 10:29 Dose: 1,000 mg Aspirin (Aspirin Chewable) 81 mg PO DAILY [facility] Last Admin: 05/26/18 10:20 Dose: 81 mg Clopidogrel Bisulfate (Plavix) 75 mg PO DAILY [facility] Last Admin: 05/26/18 10:20 Dose: 75 mg Enoxaparin Sodium (Lovenox) 40 mg SC DAILY [facility] Last Admin: 05/26/18 10:20 Dose: 40 mg Ergocalciferol (Drisdol 50,000 Intl Units Cap) 1 cap PO QD7 [facility] Last Admin: 05/25/18 13:12 Dose: 1 cap Famotidine (Pepcid) 20 mg PO DAILY [facility] Last Admin: 05/26/18 10:19 Dose: 20 mg Furosemide (Lasix) 20 mg PO MWF [facility] Last Admin: 05/25/18 13:13 Dose: 20 mg Home Med (Patient's Own Inhaler) 2 puff INH Q24H [facility] Home Med (Patient's Own Medication) 1 tab PO DAILY [facility] Sodium Chloride (Sodium Chloride 0.9%) 1,000 mls @ 50 mls/hr IV .Q20H [facility] Last Admin: 05/25/18 22:30 Dose: Not Given Levothyroxine Sodium (Synthroid) 75 mcg PO DAILY@0630 [facility] Last Admin: 05/26/18 05:50 Dose: 75 mcg Rosuvastatin Calcium (Crestor) 5 mg PO HS [facility] Last Admin: 05/25/18 22:31 Dose: 5 mg Tamsulosin HCl (Flomax) 0.4 mg PO DAILY [facility] Last Admin: 05/26/18 10:20 Dose: 0.4 mg Results - Vital Signs Recent Vital Signs: Last Vital Signs Temp 98.0 F 05/26/18 20:26 Pulse 84 05/26/18 20:26 Resp 20 05/26/18 20:26 BP 98/64 L 05/26/18 20:26 Pulse Ox 96 05/26/18 20:26 - Labs Result Diagrams: 05/23/18 23:23 05/23/18 23:23 Assessment & Plan - Assessment and Plan (Free Text) Assessment: Chest pain r/o ACS chest pain Trops/BNP negative ECHO: EF 40% Abnormal stress test For Cardiac Cath on Monday HLD -c/w atorvastatin 10mg daily -f/u lipid panel HTN -c/w lisinopril 2.5mg -c/w toprol XL 12.5mg BID Hypothyroidism -f/u TSH/Free T4 -c/w levothyroxine 75mcg COPD -c/w home meds (we do not have on formulary) -PRN breathing treatments for wheezing/SOB BPH -home med changed to tamsulosin 0.4mg daily Proph GI prophylaxis not indicated SCDs
[2018-05-26] MEDS: DUTASTERIDE 0.5 MG PO SCH (22:16)
[2018-05-27] MEDS: Levothyroxine 75 MCG TAB PO SCH (05:50)
[2018-05-27] MEDS: SPIRIVA RESPIMAT INH SCH (05:52)
[2018-05-27] MEDS: Enoxaparin 40 mg Syringe SC SCH (09:24)
--- NOTE | 2018-05-27 15:50 | CP.PCM.PN ---
Subjective - Date & Time of Evaluation Date of Evaluation: 05/27/18 Time of Evaluation: 08:30 - Subjective Subjective: Patient seen and examined today No nausea No vomiting No fever No diarrhea No dizziness No shortness of breath Objective - Vital Signs/Intake and Output Vital Signs (last 24 hours): Temp Pulse Resp BP Pulse Ox 97.9 F 85 20 97/67 L 95 05/27/18 08:00 05/27/18 08:00 05/27/18 08:00 05/27/18 08:00 05/27/18 12:00 Intake and Output: 05/27/18 05/27/18 06:59 18:59 Intake Total 480 Balance 480 - Medications Medications: Current Medications Albuterol Sulfate (Albuterol 0.083% Inhal Stacie (2.5 Mg/3 Ml) Ud) 2.5 mg INH RQ6 PRN PRN Reason: SHORTNESS OF BREATH Alprazolam (Xanax) 1 mg PO QID [facility] Last Admin: 05/27/18 13:20 Dose: 1 mg Ascorbic Acid (Vitamin C 500 Mg Tab) 1,000 mg PO DAILY [facility] Last Admin: 05/27/18 09:26 Dose: 1,000 mg Aspirin (Aspirin Chewable) 81 mg PO DAILY [facility] Last Admin: 05/27/18 09:24 Dose: 81 mg Clopidogrel Bisulfate (Plavix) 75 mg PO DAILY [facility] Last Admin: 05/27/18 09:24 Dose: 75 mg Enoxaparin Sodium (Lovenox) 40 mg SC DAILY [facility] Last Admin: 05/27/18 09:24 Dose: 40 mg Ergocalciferol (Drisdol 50,000 Intl Units Cap) 1 cap PO QD7 [facility] Last Admin: 05/25/18 13:12 Dose: 1 cap Famotidine (Pepcid) 20 mg PO DAILY [facility] Last Admin: 05/27/18 09:24 Dose: 20 mg Furosemide (Lasix) 20 mg PO MWF [facility] Last Admin: 05/25/18 13:13 Dose: 20 mg Home Med (Patient's Own Inhaler) 2 puff INH Q24H [facility] Last Admin: 05/27/18 05:52 Dose: 2 puff Home Med (Patient's Own Medication) 1 tab PO HS [facility] Last Admin: 05/26/18 22:16 Dose: 1 tab Levothyroxine Sodium (Synthroid) 75 mcg PO DAILY@0630 [facility] Last Admin: 05/27/18 05:50 Dose: 75 mcg Rosuvastatin Calcium (Crestor) [address] [facility] Last Admin: 05/26/18 22:18 Dose: 5 mg Tamsulosin HCl (Flomax) 0.[address] [facility] - Labs Labs: 05/23/18 23:23 05/23/18 23:23 - Constitutional Appears: Well - Head Exam Head Exam: ATRAUMATIC, NORMAL INSPECTION, NORMOCEPHALIC - Eye Exam Eye Exam: EOMI, Normal appearance, PERRL Pupil Exam: NORMAL ACCOMODATION, PERRL - ENT Exam ENT Exam: Mucous Membranes Moist, Normal Exam - Neck Exam Neck Exam: Full ROM, Normal Inspection. absent: Lymphadenopathy - Respiratory Exam Respiratory Exam: Decreased Breath Sounds - Cardiovascular Exam Cardiovascular Exam: REGULAR RHYTHM, +S1, +S2 - GI/Abdominal Exam GI & Abdominal Exam: Soft, Diminished Bowel Sounds - Rectal Exam Rectal Exam: Deferred - Neurological Exam Neurological Exam: Oriented x3 Assessment and Plan - Assessment and Plan (Free Text) Plan: Albuterol Xanax Vitamin C Aspirin chewable Plavix Lovenox Drisdol Pepcid Lasix IV fluids Synthroid Crestor Flomax Meds reviewed Labs reviewed Vitals reviewed
[2018-05-27] MEDS: DUTASTERIDE 0.5 MG PO SCH (21:29)
--- NOTE | 2018-05-27 23:57 | CP.PCM.PN ---
Subjective - Date & Time of Evaluation Date of Evaluation: 05/27/18 Time of Evaluation: 18:20 - Subjective Subjective: Patient seen and evaluated No cardiac events noted For cath in am Review Of Systems Constitutional: Negative for: Fever, Chills, Sweats Cardiovascular: Positive for: Chest Pain. Negative for: Palpitations Respiratory: Negative for: Cough, Shortness of Breath Gastrointestinal: Negative for: Nausea, Vomiting Neurological: Negative for: Weakness, Numbness Physical Exam - Physical Exam Appears: Non-toxic Skin: Normal Color, Warm, Dry Head: Atraumatic, Normacephalic Eye(s): bilateral: Normal Inspection Oral Mucosa: Moist Neck: Normal, Supple Chest: Other (Sternotomy scar) Cardiovascular: Rhythm Regular Respiratory: Normal Breath Sounds, No Rales, No Rhonchi, No Wheezing Gastrointestinal/Abdominal: Soft, No Tenderness Neurological/Psych: Oriented x3, Normal Speech Assessment and Plan - Assessment and Plan (Free Text) Assessment: Chest pain r/o ACS chest pain Trops/BNP negative ECHO: EF 40% Abnormal stress test For Cardiac Cath on Monday HLD -c/w atorvastatin 10mg daily -f/u lipid panel HTN -c/w lisinopril 2.5mg -c/w toprol XL 12.5mg BID Hypothyroidism -f/u TSH/Free T4 -c/w levothyroxine 75mcg COPD -c/w home meds (we do not have on formulary) -PRN breathing treatments for wheezing/SOB BPH -home med changed to tamsulosin 0.4mg daily Proph GI prophylaxis not indicated SCDs Objective - Vital Signs/Intake and Output Vital Signs (last 24 hours): Temp Pulse Resp BP Pulse Ox 97.8 F 88 20 94/59 L 95 05/27/18 16:01 05/27/18 23:46 05/27/18 16:01 05/27/18 16:01 05/27/18 20:00 - Medications Medications: Current Medications Albuterol Sulfate (Albuterol 0.083% Inhal Stacie (2.5 Mg/3 Ml) Ud) 2.5 mg INH RQ6 PRN PRN Reason: SHORTNESS OF BREATH Alprazolam (Xanax) 1 mg PO QID [facility] Last Admin: 05/27/18 21:29 Dose: 1 mg Ascorbic Acid (Vitamin C 500 Mg Tab) 1,000 mg PO DAILY [facility] Last Admin: 05/27/18 09:26 Dose: 1,000 mg Aspirin (Aspirin Chewable) 81 mg PO DAILY [facility] Last Admin: 05/27/18 09:24 Dose: 81 mg Clopidogrel Bisulfate (Plavix) 75 mg PO DAILY [facility] Last Admin: 05/27/18 09:24 Dose: 75 mg Enoxaparin Sodium (Lovenox) 40 mg SC DAILY [facility] Last Admin: 05/27/18 09:24 Dose: 40 mg Ergocalciferol (Drisdol 50,000 Intl Units Cap) 1 cap PO QD7 [facility] Last Admin: 05/25/18 13:12 Dose: 1 cap Famotidine (Pepcid) 20 mg PO DAILY [facility] Last Admin: 05/27/18 09:24 Dose: 20 mg Furosemide (Lasix) 20 mg PO MWF [facility] Last Admin: 05/25/18 13:13 Dose: 20 mg Home Med (Patient's Own Inhaler) 2 puff INH Q24H [facility] Last Admin: 05/27/18 05:52 Dose: 2 puff Home Med (Patient's Own Medication) 1 tab PO [facility] Last Admin: 05/27/18 21:29 Dose: 1 tab Levothyroxine Sodium (Synthroid) 75 mcg PO DAILY@0630 [facility] Last Admin: 05/27/18 05:50 Dose: 75 mcg Rosuvastatin Calcium (Crestor) 5 mg PO [facility] Last Admin: 05/27/18 21:30 Dose: 5 mg Tamsulosin HCl (Flomax) 0.4 mg PO [facility] Last Admin: 05/27/18 21:29 Dose: 0.4 mg - Labs Labs: 05/23/18 23:23 05/23/18 23:23
[2018-05-28] MEDS: Levothyroxine 75 MCG TAB PO SCH (06:46)
[2018-05-28] MEDS: SPIRIVA RESPIMAT INH SCH (07:45)
[2018-05-28] MEDS ORDERED: Lidocaine 2% MPF (5 ml) Inj ONE (07:55)
[2018-05-28] MEDS ORDERED: Iohexol 350mg/ml 100 ML ONE (07:55)
[2018-05-28] MEDS ORDERED: Midazolam 2 MG/2 ML VIAL ONE (08:41)
[2018-05-28] MEDS ORDERED: Iohexol 350mgl/ml 50 ML ONE (09:05)
--- NOTE | 2018-05-28 09:36 | CP.PCM.PN ---
Subjective - Date & Time of Evaluation Date of Evaluation: 05/28/18 Time of Evaluation: 09:34 - Subjective Subjective: Patient s/p Cath 1. L Main: Patent 2. LAD: Mid 99% 3. L Cx: 100% 4. RCA: 100% 5. EF: 30%, EDP 6. All grafts patent Limited ECHO to assess EF to be done today Objective - Vital Signs/Intake and Output Vital Signs (last 24 hours): Temp Pulse Resp BP Pulse Ox 98.8 F 88 20 99/56 L 95 05/27/18 23:30 05/27/18 23:46 05/27/18 23:30 05/27/18 23:30 05/27/18 23:30 - Medications Medications: Current Medications Albuterol Sulfate (Albuterol 0.083% Inhal Stacie (2.5 Mg/3 Ml) Ud) 2.5 mg INH RQ6 PRN PRN Reason: SHORTNESS OF BREATH Alprazolam (Xanax) 1 mg PO QID [facility] Last Admin: 05/27/18 21:29 Dose: 1 mg Ascorbic Acid (Vitamin C 500 Mg Tab) 1,000 mg PO DAILY [facility] Last Admin: 05/27/18 09:26 Dose: 1,000 mg Aspirin (Aspirin Chewable) 81 mg PO DAILY [facility] Last Admin: 05/27/18 09:24 Dose: 81 mg Clopidogrel Bisulfate (Plavix) 75 mg PO DAILY [facility] Last Admin: 05/27/18 09:24 Dose: 75 mg Enoxaparin Sodium (Lovenox) 40 mg SC DAILY [facility] Last Admin: 05/27/18 09:24 Dose: 40 mg Ergocalciferol (Drisdol 50,000 Intl Units Cap) 1 cap PO QD7 [facility] Last Admin: 05/25/18 13:12 Dose: 1 cap Famotidine (Pepcid) 20 mg PO DAILY [facility] Last Admin: 05/27/18 09:24 Dose: 20 mg Furosemide (Lasix) 20 mg PO MWF [facility] Last Admin: 05/25/18 13:13 Dose: 20 mg Home Med (Patient's Own Inhaler) 2 puff INH Q24H [facility] Last Admin: 05/27/18 05:52 Dose: 2 puff Home Med (Patient's Own Medication) 1 tab PO HS [facility] Last Admin: 05/27/18 21:29 Dose: 1 tab Levothyroxine Sodium (Synthroid) 75 mcg PO DAILY@0630 [facility] Last Admin: 05/28/18 06:46 Dose: Not Given Rosuvastatin Calcium (Crestor) 5 mg PO [facility] Last Admin: 05/27/18 21:30 Dose: 5 mg Tamsulosin HCl (Flomax) 0.4 mg PO [facility] Last Admin: 05/27/18 21:29 Dose: 0.4 mg - Labs Labs: 05/23/18 23:23 05/23/18 23:23
[2018-05-28] MEDS: Enoxaparin 40 mg Syringe SC SCH (12:16)
--- NOTE | 2018-05-28 20:02 | CP.PCM.PN ---
Subjective - Date & Time of Evaluation Date of Evaluation: 05/28/18 Time of Evaluation: 08:00 - Subjective Subjective: No fever No nausea No vomiting No diarrhea No chest pain No shortness of breath Objective - Vital Signs/Intake and Output Vital Signs (last 24 hours): Temp Pulse Resp BP Pulse Ox 97.8 F 86 18 107/75 96 05/28/18 16:09 05/28/18 18:00 05/28/18 16:09 05/28/18 16:09 05/28/18 18:00 - Medications Medications: Current Medications Albuterol Sulfate (Albuterol 0.083% Inhal Stacie (2.5 Mg/3 Ml) Ud) 2.5 mg INH RQ6 PRN PRN Reason: SHORTNESS OF BREATH Alprazolam (Xanax) 1 mg PO QID [facility] Last Admin: 05/28/18 18:38 Dose: 1 mg Ascorbic Acid (Vitamin C 500 Mg Tab) 1,000 mg PO DAILY [facility] Last Admin: 05/28/18 12:15 Dose: 1,000 mg Aspirin (Aspirin Chewable) 81 mg PO DAILY [facility] Last Admin: 05/28/18 12:13 Dose: 81 mg Clopidogrel Bisulfate (Plavix) 75 mg PO DAILY [facility] Last Admin: 05/28/18 12:12 Dose: 75 mg Enoxaparin Sodium (Lovenox) 40 mg SC DAILY [facility] Last Admin: 05/28/18 12:16 Dose: 40 mg Ergocalciferol (Drisdol 50,000 Intl Units Cap) 1 cap PO QD7 [facility] Last Admin: 05/25/18 13:12 Dose: 1 cap Famotidine (Pepcid) 20 mg PO DAILY [facility] Last Admin: 05/28/18 12:13 Dose: 20 mg Furosemide (Lasix) 20 mg PO MWF [facility] Last Admin: 05/28/18 12:14 Dose: 20 mg Home Med (Patient's Own Inhaler) 2 puff INH Q24H [facility] Last Admin: 05/28/18 07:45 Dose: Not Given Home Med (Patient's Own Medication) 1 tab PO [facility] Last Admin: 05/27/18 21:29 Dose: 1 tab Levothyroxine Sodium (Synthroid) 75 mcg PO DAILY@0630 [facility] Last Admin: 05/28/18 06:46 Dose: Not Given Rosuvastatin Calcium (Crestor) 5 mg PO [facility] Last Admin: 05/27/18 21:30 Dose: 5 mg Tamsulosin HCl (Flomax) 0.4 mg PO [facility] Last Admin: 05/27/18 21:29 Dose: 0.4 mg - Labs Labs: 05/23/18 23:23 05/23/18 23:23 - Constitutional Appears: Well - Head Exam Head Exam: ATRAUMATIC, NORMAL INSPECTION, NORMOCEPHALIC - Eye Exam Eye Exam: EOMI, Normal appearance, PERRL Pupil Exam: NORMAL ACCOMODATION, PERRL - ENT Exam ENT Exam: Mucous Membranes Moist, Normal Exam - Neck Exam Neck Exam: Full ROM, Normal Inspection. absent: Lymphadenopathy - Respiratory Exam Respiratory Exam: Decreased Breath Sounds - Cardiovascular Exam Cardiovascular Exam: REGULAR RHYTHM, +S1, +S2 - GI/Abdominal Exam GI & Abdominal Exam: Soft, Diminished Bowel Sounds - Rectal Exam Rectal Exam: Deferred Assessment and Plan - Assessment and Plan (Free Text) Plan: Albuterol Xanax Vitamin C Aspirin chewable Plavix Lovenox Drisdol Pepcid Lasix Synthroid Crestor Flomax s/p Cath L Main: Patent LAD: Mid 99% L Cx: 100% RCA: 100% EF: 30%, EDP All grafts patent dr. oropeza notes appreciated d/w Limited ECHO to assess EF to be done today Meds reviewed Labs reviewed Vitals reviewed
[2018-05-28] MEDS: DUTASTERIDE 0.5 MG PO SCH (21:19)
--- NOTE | 2018-05-29 00:03 | CARD ---
APPROVED REPORT Date of service: 05/28/2018 EXAM: Two-dimensional and M-mode echocardiogram with Doppler and color Doppler. Other Information Quality : GoodTechnically LimitedRhythm : INDICATION LV Function:Systolic 2D DIMENSIONS IVSd0.9 (0.7-1.1cm)LVDd5.2 (3.9-5.9cm) PWd0.9 (0.7-1.1cm)LA Rtqndx04 (18-58mL) LVDs4.4 (2.5-4.0cm)FS (%) 13.9 % LVEF (%)45.0 (>50%)LVEF (Milner's)45.82 % M-Mode DIMENSIONS RVDd2.60 (2.1-3.2cm)Left Atrium (MM)4.69 (2.5-4.0cm) IVSd0.80 (0.7-1.1cm)Aortic Root3.23 (2.2-3.7cm) LVDd5.34 (4.0-5.6cm)Aortic Cusp Exc.2.08 (1.5-2.0cm) PWd0.83 (0.7-1.1cm)FS (%) 24 % LVDs4.06 (2.0-3.8cm)LVEF (%)47 (>50%) Mitral Valve MV E Rgompyke52.3cm/sMV A Peurtlmv798.6cm/sE/A ratio0.8 TDI Lateral E' Peak V8.22cm/sMedial E' Peak V5.51cm/sE/Lateral E'12.1 E/Medial E'18.0 Tricuspid Valve TR Peak [id number] LEFT VENTRICLE The left ventricle is normal size. There is normal left ventricular wall thickness. Left ventricle systolic function is borderline. The Ejection Fraction is 45-50%. There is normal LV segmental wall motion. Tissue Doppler imaging reveals abnormal left ventricular diastolic dysfunction. No left ventricle thrombus noted on this study. RIGHT VENTRICLE The right ventricle is normal size. There is normal right ventricular wall thickness. The right ventricular systolic function is normal. ATRIA The left atrium is mildly dilated. The right atrium size is normal. The interatrial septum is intact with no evidence for an atrial septal defect. AORTIC VALVE The aortic valve is normal in structure. There is trace aortic regurgitation. There is no aortic valvular stenosis. There is no aortic valvular vegetation. MITRAL VALVE The mitral valve is normal in structure. There is no evidence of mitral valve prolapse. There is no mitral valve stenosis. Mitral regurgitation is mild. TRICUSPID VALVE The tricuspid valve is normal in structure. There is mild tricuspid regurgitation. Right ventricular systolic pressure is estimated at 30-40 mmHg. There is mild pulmonary hypertension. PULMONIC VALVE The pulmonic valve is not well visualized. There is no pulmonic valvular regurgitation. GREAT VESSELS The aortic root is normal in size. PERICARDIAL EFFUSION There is no significant pericardial effusion. <Conclusion> Left ventricle systolic function is borderline. The Ejection Fraction is 45-50%. Diastolic dysfunction. There is trace aortic regurgitation. Mitral regurgitation is mild. There is mild tricuspid regurgitation. There is mild pulmonary hypertension. There is no pulmonic valvular regurgitation.
[2018-05-29 00:43] VITALS: RESP 20
[2018-05-29] MEDS: Levothyroxine 75 MCG TAB PO SCH (05:53)
[2018-05-29 08:26] VITALS: BP 96/60; PULSE 80; TEMP 97.9; O2SAT 94
--- NOTE | 2018-05-29 09:27 | CP.PCM.PN ---
Subjective - Date & Time of Evaluation Date of Evaluation: 05/29/18 Time of Evaluation: 09:27 - Subjective Subjective: PATIENT SEEN AND EXAMINED AT THE BEDSIDE Objective - Vital Signs/Intake and Output Vital Signs (last 24 hours): Temp Pulse Resp BP Pulse Ox 97.9 F 80 20 96/60 L 94 L 05/29/18 08:00 05/29/18 08:00 05/29/18 08:00 05/29/18 08:00 05/29/18 08:00 - Medications Medications: Current Medications Albuterol Sulfate (Albuterol 0.083% Inhal Stacie (2.5 Mg/3 Ml) Ud) 2.5 mg INH RQ6 PRN PRN Reason: SHORTNESS OF BREATH Alprazolam (Xanax) 1 mg PO QID [facility] Last Admin: 05/28/18 21:19 Dose: 1 mg Ascorbic Acid (Vitamin C 500 Mg Tab) 1,000 mg PO DAILY [facility] Last Admin: 05/28/18 12:15 Dose: 1,000 mg Aspirin (Aspirin Chewable) 81 mg PO DAILY [facility] Last Admin: 05/28/18 12:13 Dose: 81 mg Clopidogrel Bisulfate (Plavix) 75 mg PO DAILY [facility] Last Admin: 05/28/18 12:12 Dose: 75 mg Enoxaparin Sodium (Lovenox) 40 mg SC DAILY [facility] Last Admin: 05/28/18 12:16 Dose: 40 mg Ergocalciferol (Drisdol 50,000 Intl Units Cap) 1 cap PO QD7 [facility] Last Admin: 05/25/18 13:12 Dose: 1 cap Famotidine (Pepcid) 20 mg PO DAILY [facility] Last Admin: 05/28/18 12:13 Dose: 20 mg Furosemide (Lasix) 20 mg PO MWF [facility] Last Admin: 05/28/18 12:14 Dose: 20 mg Home Med (Patient's Own Inhaler) 2 puff INH Q24H [facility] Last Admin: 05/28/18 07:45 Dose: Not Given Home Med (Patient's Own Medication) 1 tab PO [facility] Last Admin: 05/28/18 21:19 Dose: 1 tab Levothyroxine Sodium (Synthroid) 75 mcg PO DAILY@0630 [facility] Last Admin: 05/29/18 05:53 Dose: 75 mcg Rosuvastatin Calcium (Crestor) 5 mg PO [facility] Last Admin: 05/28/18 21:19 Dose: 5 mg Tamsulosin HCl (Flomax) 0.4 mg PO HS [facility] Last Admin: 05/28/18 21:19 Dose: 0.4 mg - Labs Labs: 05/23/18 23:23 05/23/18 23:23 Assessment and Plan - Assessment and Plan (Free Text) Assessment: FOLLOW UP WITH DR Elaine SOSA OR PMD IN HIS OFFICE -----CALL FOR APPOINTMENT FOLLOW UP WITH DR JACOB IN HIS OFFICE IN [place] ------CALL FOR APPOINTMENT CONTINUE HOME MEDICATION DISCONTINUE LISINOPRIL PER DR JACOB AND NO PLAVIX NEEDED PER DR JACOB POST CARDIAC CATH PATENT CORONARY ARTERIES ACTIVITY TOLERATED CALL DR Elaine SOSA OR DR JACOB OR GO TO THE EMERGENCY ROOM IF SYMPTOM RETURN OR WORSENING
--- NOTE | 2018-06-04 02:39 | CARDCATH ---
PROCEDURE DATE: 05/28/2018 PROCEDURES: 1. Left heart catheterization. 2. Coronary angiogram. 3. Saphenous vein graft angiogram. REFERRING PHYSICIAN: Az Tucker MD. PERFORMING PHYSICIAN: Karri Robertson MD. CLINICAL INDICATIONS: 1. Chest pain. 2. History of coronary artery disease, status post CABG. 3. Abnormal stress test. 4. Hypertension. 5. Hyperlipidemia. 6. COPD. DESCRIPTION OF THE PROCEDURE: After informed consent, the patient was prepped and draped in the usual sterile fashion. A 2% lidocaine was given in the right groin for local anesthesia. Using micropuncture technique, 6-Russian sheath was introduced into right common femoral artery. A JL4 6-Russian diagnostic catheter engaged into left main coronary artery. Contrast injected and left coronary angiogram was done. The catheter was exchanged to JR4 6-Russian diagnostic catheter. The catheter was inserted into left ventricle. LVEDP was measured. Contrast injected and LV angiogram was done. Then the catheter was pulled back. Gradient across the aortic valve was measured. Then the same catheter engaged into right coronary artery. Contrast injected and right coronary angiogram was done. Using the JR4, saphenous vein graft angiogram was performed. Saphenous vein graft to LAD, saphenous vein graft to obtuse marginal, and saphenous vein graft to RCA, angiograms were performed. The patient tolerated the procedure well. Post procedure, Mynx closure device deployed in the right groin with excellent hemostasis. FINDINGS: 1. Left main coronary artery is patent. 2. LAD has a proximal to mid 90% to 99% stenosis. Distal LAD and diagonal branches are patent. 3. Distal left circumflex is 100% occluded. 4. Right coronary artery is occluded 100% in the proximal portion. 5. Saphenous vein graft to diagonal and LAD is patent. 6. Saphenous vein graft to obtuse marginal artery is patent. 7. Saphenous vein graft to PDA branch of right coronary artery is patent. 8. LV ejection fraction is approximately 45% to 50%. Mild global hypokinesis. EDP is 20. No gradient across the aortic valve. IMPRESSION: 1. Severe [place] coronary artery disease as described above. 2. All the three saphenous vein grafts are patent. 3. Mild global hypokinesis with ejection fraction of 45% to 50%. Recommend medical management. Karri Robertson MD
== END 2018-05-29 10:45 | disposition home or self-care (01) ==
LOC: C.ER 22:34 → C.9E 05-24 03:32 → C.5S 05-24 05:37
PROVIDERS: ADMIT Internal Medicine Nephrology; ATTEND Internal Medicine Nephrology
DX: I25.10 Atherosclerotic heart disease of native coronary artery without angina pectoris (principal); E78.5 Hyperlipidemia, unspecified; R07.9 Chest pain, unspecified; I11.0 Hypertensive heart disease with heart failure; I10 Essential (primary) hypertension; E03.9 Hypothyroidism, unspecified; I50.9 Heart failure, unspecified; J43.9 Emphysema, unspecified; K21.9 Gastro-esophageal reflux disease without esophagitis; Z86.010 Personal history of colon polyps; Z87.891 Personal history of nicotine dependence; Z95.1 Presence of aortocoronary bypass graft; Z95.5 Presence of coronary angioplasty implant and graft; I25.82 Chronic total occlusion of coronary artery
CPT/HCPCS: 36415; 71045; 71275; 78452; 80053; 84484; 85025; 85378; 93005; 93017; 93306; 93459; 94770; 96372; 99152; 99153; 99285; A9502; C1769; C1887; C1893; G0378; J1644; J1650; J2250; J2785; J3010; J7030; Q9967